=== PATIENT | male | born 1950 | race Caucasian/White ===

== ENCOUNTER 2020-05-23 09:16 | Emergency (ER) | payer MEDICARE, SELFPAY ==
[2020-05-23 09:19] VITALS: BP 191/99; PULSE 91; RESP 18; TEMP 36.8; O2SAT 97; BMI 32.4
[2020-05-23 09:25] VITALS: BP 155/82; PULSE 87; RESP 18; O2SAT 94
--- NOTE | 2020-05-23 09:42 | ED_ITS ---
HPI - Back Pain/Injury General: Chief Complaint: Back Pain/Injury Stated Complaint: LOW BACK PAIN Time Seen by Provider: 05/23/20 09:18 History of Present Illness: HPI Narrative: Patient complains of right-sided back pain that started 2 days ago after moving air conditioner from the attic and he felt pain while carrying that and the pain is not subsided and now the pain is transferred from the right side to the left side it hurts to lift bend twist get out of bed or get out of chair. Denies any hematuria fever chills nausea or vomiting he does have a history of kidney stones MD elicited complaint: back injury Pertinent past history: prior back pain Onset (ago): day(s) Timing: progressively worsening Severity: moderate Similar Symptoms Previously: Yes Quality: aching Location: left flank Radiation: none Exacerbating factors: movement, walking and lifting Relieving factors: immobilization Context: while lifting Associated symptoms: Reports no associated symptoms; Deny abdominal pain, chills, fever(s), nausea or vomiting Work related injury: No Review of Systems Const: Denies: fever(s), chills or body aches Eyes: Denies: change in vision or blurry vision ENMT: Denies: throat pain or nasal congestion Card: Denies: chest pain or dyspnea on exertion Resp: Denies: dyspnea, productive cough or non-productive cough GI: Denies: abdominal pain, nausea or vomiting : Denies: difficulty urinating Musc: Reports: back pain; Denies: extremity pain Skin/Breast: Denies: rash Neuro: Denies: headache(s) Psych: Denies: anxiety or depression Drake/Lymph: Denies: easy bruising PFS ED PFSH: Social History Smoking and tobacco status: never smoked Physical Exam Const: COMMON NORMALS: no acute distress, average body habitus and patient oriented x3 HENMT: COMMON NORMALS: normocephalic HEAD & SCALP: normal to inspection and normocephalic FACE & SINUS: normal facial exam Eye: COMMON NORMALS: conjunctivae normal GENERAL EYE: appearance normal, both eyes and all related structures CONJUNCTIVA: Yes conjunctivae normal Neck/C-Spine: COMMON NORMALS: no JVD Chest: COMMONS NORMALS: normal inspection of the chest Resp: COMMON NORMALS: normal respiratory effort and clear to auscultation bilaterally AUSCULTATION: clear to auscultation bilaterally Cardio: COMMON NORMALS: no JVD, regular rate and regular rhythm RATE: regular rate RHYTHM: regular rhythm GI: COMMON NORMALS: Normal to inspection, nondistended, normoactive bowel sounds present : COMMON NORMALS: Yes no CVA tenderness BLADDER/KIDNEY EXAM: Yes no CVA tenderness Back/Pelvis: COMMON NORMALS: no CVA tenderness; negative for straight leg raise negative bilaterally LUMBAR SPINE/LOWER BACK: Yes straight leg raise positive left Extremity: COMMON NORMALS: normal to inspection and full ROM Neuro: COMMON NORMALS: patient oriented x3 Course Vital Signs: Vital signs: Vital Signs Temperature 98.3 F 05/23/20 09:19 Pulse Rate 87 05/23/20 09:25 Respiratory Rate 18 05/23/20 09:25 Blood Pressure 155/82 05/23/20 09:25 Pulse Oximetry 94 05/23/20 09:25 Coding Level of Care Code ED Ammonium Hydroxide Operator for Morena Lindsay
[2020-05-23 09:51] LABS: Add Urine Microscopic? NO
[2020-05-23] MEDS: ketorolac 60 mg/2 mL INJ IM (09:55)
[2020-05-23] MEDS: HYDROcodone-acetaminophen 5-325 mg Tablet 1 TAB PO (09:55)
[2020-05-23 09:57] VITALS: BP 137/80; PULSE 69; RESP 16; O2SAT 95
[2020-05-23 09:57] LABS: Bilirubin Urine Neg (NEGATIVE); Blood Urine Neg (Negative); Glucose Urine UA Trace (Normal); Ketones Urine Negative (Negative); Leukocyte Esterase Urine Negative (Negative); Nitrate Urine Negative (Negative); Protein Urine Neg (Negative); Urine Appearance Clear (CLEAR); Urine Color Straw (Yellow); Urobilinogen Urine Norm (Negative); pH Urine 6.5 (5-7)
[2020-05-23 10:03] LABS: Basophils # 0.1 10^3/uL (0.0-0.1); Basophils % 0.8 %; Eosinophils % 0.5 %; Hematocrit 44.2 % (42.0-52.0); Hemoglobin 14.5 g/dL (11.7-16.6); Lymphocytes # 1.5 10^3/uL (0.8-4.8); Lymphocytes % 20.6 %; Mean Corpuscular HGB Conc 32.8 g/dL (30.0-36.0); Mean Corpuscular Hemoglobin 29.4 pg (28.0-34.0); Mean Corpuscular Volume 89.7 fL (80-94); Mean Platelet Volume 9.8 fL (7.4-10.4); Monocytes # 0.4 10^3/uL (0.2-0.9); Monocytes % 5.1 %; Neutrophils # 5.4 10^3/uL (1.8-7.7); Neutrophils % 72.3 %; Nucleated Red Blood Cells % 0 %; Platelet Count 246 10^3/cmm (130-400); Red Blood Count 4.93 10^6/uL (4.1-5.3); Red Cell Distribution Width 12.6 % (12.1-15.1); White Blood Count 7.5 10^3/uL (4.0-10.0)
[2020-05-23 10:17] VITALS: BP 143/78; PULSE 63; RESP 16; O2SAT 96
[2020-05-23 10:21] LABS: Anion Gap 16.8 (5-19); Blood Urea Nitrogen 16 mg/dL (8-23); Calcium 9.7 mg/dL (8.5-10.5); Carbon Dioxide 25 mmol/L (22-29); Chloride 98 mmol/L (98-107); Glucose 168 mg/dL (65-115); Osmolality Calculated 282 mOsm/kg (285-295); Potassium 3.8 mmol/L (3.5-5.1); Sodium 136 mmol/L (136-145)
== END 2020-05-23 10:17 | disposition home or self-care (01) ==
LOC: ER 10:19
PROVIDERS: Emergency Provider Nurse Practitioner Family
DX: M54.9 Dorsalgia, unspecified (principal)
CPT/HCPCS: 12345; 36415; 80048; 81003; 85025; 96372; 99281; 99283; J1885

== ENCOUNTER → 2021-09-21 13:53 | Outpatient (BNVA) | payer MEDICARE, OTHER, SELFPAY | PROVIDERS: PCP Family Medicine; Visit Provider Urology | DX: N45.1 Epididymitis (principal) | CPT/HCPCS: 81003 ==

== ENCOUNTER → 2021-10-18 09:53 | Outpatient (BNVA) | payer MEDICARE, OTHER, SELFPAY | PROVIDERS: PCP Family Medicine; Visit Provider Urology | DX: N50.811 Right testicular pain (principal) | CPT/HCPCS: 81003 ==

== ENCOUNTER → 2021-11-01 09:19 | Outpatient (BNVA) | payer MEDICARE, OTHER, SELFPAY | PROVIDERS: PCP Family Medicine; Visit Provider Urology | DX: N50.811 Right testicular pain (principal); Z20.822 Contact with and (suspected) exposure to COVID-19 | CPT/HCPCS: 87635 ==

== ENCOUNTER 2021-11-04 11:00 | Day surgery (SDC) | payer MEDICARE, OTHER, SELFPAY ==
[2021-11-03 14:59] VITALS: BMI 27.3
[2021-11-04 10:54] VITALS: BP 113/82; PULSE 81; RESP 18; TEMP 36.6; O2SAT 98
--- NOTE | 2021-11-04 11:08 | ECG_ITS ---
[facility] Test Date: 2021-11-04 Pat Name: Vladimir Melgar Department: Room: Gender: Male Fundraising Director: : 1950 Requested By: Kyra Zapata Order Number: [id number] Markell MD: Fili Peterson M.D. Measurements Intervals [place] Rate: 78 P: [place]: QRS: -22 QRSD: 86 T: 6 QT: 356 QTc: 408 Interpretive Statements ATRIAL FIBRILLATION WITH ABERRANT CONDUCTION OR VENTRICULAR PREMATURE COMPLEXES LOW QRS VOLTAGE IN PRECORDIAL LEADS [QRS DEFLECTION < 1.0 mV IN CHEST LEADS] POSSIBLE ANTERIOR MYOCARDIAL INFARCTION , OF INDETERMINATE AGE [30 ms Q WAVE IN V3/V4, OR R < 0.2 mV IN V4] No previous ECG available for comparison Electronically Signed On 11-06-2021 7:49:36 FLEET ASSISTANT by Fili Peterson M.D. [email or web address]/store/[id number]
--- NOTE | 2021-11-04 12:58 | PM.MISC ---
Miscellaneous Note Purpose of Documentation: Surgical cancellation Note: On preoperative evaluation with anesthesia the patient was found to have new onset atrial fibrillation. He is scheduled for right orchiectomy for chronic intermittent severe testicular pain. Despite the importance of the scheduled procedure it was felt that proceeding with work-up for atrial fibrillation prior to the procedure would make sense. For that reason the surgery has been canceled. We will contact his family physician Dr. Aguilar to see what he would prefer regarding work-up and treatment prior to rescheduling the surgery Reviewed in detail with the patient and with anesthesia.
--- NOTE | 2021-11-04 13:08 | SUR.PREOP ---
11:00 UPON INITIAL EXAMINATION, IRREGULAR HEART BEAT WAS NOTED. 12 LEAD EKG WAS PERFORMED AND DOCTOR IGGY WAS INFORMED.PATIENT EVALUATED BY DOCTOR PARKINSON, AND DOCTOR NICK WAS INFORMED.AFTER CONSULTATION WITH PATIENT,IT WAS DECIDED TO CANCEL SURGERY AND HAVE PATIENT FOLLOW UP WITH PCP AT [facility]. CLINIC WAS CALLED AND APPOINTMENT WAS MADE AND EKG WAS FAXED TO PATIENTS PCP.
== END 2021-11-04 13:10 | disposition home or self-care (01) ==
PROVIDERS: PCP Family Medicine; Visit Provider Urology
DX: N50.811 Right testicular pain (principal); N50.819 Testicular pain, unspecified; I48.91 Unspecified atrial fibrillation; Z53.09 Procedure and treatment not carried out because of other contraindication
CPT/HCPCS: 93005; J1100; J2405; J2704; J3010

== ENCOUNTER 2021-11-13 20:57 | Emergency (ER) | payer MEDICARE, OTHER, SELFPAY ==
--- NOTE | 2021-11-13 03:22 | XRR_ITS ---
PROCEDURE INFORMATION: Exam: XR Chest Exam date and time: 11/13/2021 3:22 AM Age: 71 years old Clinical indication: Patient HX: C/O heart palpitations. Afib on monitor. TECHNIQUE: Imaging protocol: XR of the chest. Views: 1 view. COMPARISON: No relevant prior studies available. FINDINGS: Lungs: Unremarkable. No consolidation. Pleural spaces: Unremarkable. No pleural effusion. No pneumothorax. Heart/Mediastinum: Unremarkable. No cardiomegaly. Bones/joints: Unremarkable. XR/XR chest 1V portable [id number] IMPRESSION: No acute findings.
--- NOTE | 2021-11-13 21:04 | ECG_ITS ---
[facility] Test Date: 2021-11-13 Pat Name: Vladimir Melgar Department: Room: Gender: Male Recreation Therapy Teacher: : 1950 Requested By: Artemio Veloz Order Number: [id number] Reading MD: SELVIN HOLLEY Measurements Intervals [place] Rate: 93 P: [place]: QRS: -23 QRSD: 88 T: 61 QT: 339 QTc: 422 Interpretive Statements ATRIAL FIBRILLATION WITH ABERRANT CONDUCTION OR VENTRICULAR PREMATURE COMPLEXES LOW QRS VOLTAGE IN PRECORDIAL LEADS [QRS DEFLECTION < 1.0 mV IN CHEST LEADS] POSSIBLE ANTERIOR MYOCARDIAL INFARCTION , PROBABLY OLD [30 ms Q WAVE IN V3/V4, OR R < 0.2 mV IN V4] ABNORMAL RHYTHM ECG Compared to ECG 11/04/2021 11:16:12 No significant changes Electronically Signed On 11-14-2021 19:58:44 STEEL TURNER by SELVIN HOLLEY [email or web address]/[id number] f
[2021-11-13 21:07] VITALS: BP 143/81; PULSE 76; RESP 16; TEMP 36.5; O2SAT 99
--- NOTE | 2021-11-13 21:16 | ECG_ITS ---
[facility] Test Date: 2021-11-13 Pat Name: Vladimir Melgar Department: Room: Gender: Male Vocational Education Teacher: : 1950 Requested By: Maurilio Shell Order Number: [id number] Reading MD: SELVIN HOLLEY Measurements Intervals [place] Rate: 93 P: [place]: QRS: -13 QRSD: 88 T: 28 QT: 342 QTc: 426 Interpretive Statements ATRIAL FIBRILLATION WITH ABERRANT CONDUCTION OR VENTRICULAR PREMATURE COMPLEXES NONSPECIFIC T-WAVE ABNORMALITY ABNORMAL RHYTHM ECG Compared to ECG 11/04/2021 11:16:12 T-wave abnormality now present Myocardial infarct finding no longer present Electronically Signed On 11-14-2021 19:58:42 STRATEGIC MANAGER by SELVIN HOLLEY [id number]
[2021-11-13 21:35] VITALS: BP 119/85; PULSE 94; RESP 16; TEMP 36.7; O2SAT 94
[2021-11-13 21:37] LABS: Basophils # 0.1 10^3/uL (0.0-0.1); Basophils % 0.7 %; Eosinophils # 0.1 10^3/uL (0.0-0.8); Eosinophils % 1.2 %; Hematocrit 42.5 % (42.0-52.0); Hemoglobin 14.3 g/dL (11.7-16.6); Lymphocytes # 2.6 10^3/uL (0.8-4.8); Lymphocytes % 34.5 %; Mean Corpuscular HGB Conc 33.6 g/dL (30.0-36.0); Mean Corpuscular Hemoglobin 29.8 pg (28.0-34.0); Mean Corpuscular Volume 88.5 fl (80-94); Mean Platelet Volume 9.7 fL (7.4-10.4); Monocytes # 0.7 10^3/uL (0.2-0.9); Monocytes % 9.4 %; Neutrophils # 4.01 10^3/uL (1.8-7.7); Neutrophils % 53.9 %; Nucleated Red Blood Cells % 0 %; Platelet Count 224 10^3/cmm (130-400); Red Cell Distribution Width 13.1 % (12.1-15.1); White Blood Count 7.4 10^3/uL (4.0-10.0)
--- NOTE | 2021-11-13 21:54 | W.ED.ARRPALP ---
HPI - Arrhythmia/Palpitations General: Chief Complaint: Arrhythmia/Palpitations Stated Complaint: In A-Fib Time Seen by Provider: 11/13/21 21:14 History of Present Illness: HPI narrative: 71-year-old male with a recent diagnosis of atrial fibrillation. He was placed on anticoagulation therapy. He is experienced palpitations since his diagnosis. He denies any chest pain. He has had a mild headache on and off with the neck ache. His describes periods of diaphoresis. He has appointments for stress testing and echocardiography in November. He denies significant shortness of breath. He has no known cardiac history otherwise MD complaint: skipped beats , palpitations, irregular heart beat and atrial fibrillation Onset (ago): day(s) Duration: intermittent Severity: moderate Context: occurred during rest Arrhythmia history: atrial fibrillation and on anti-coagulants Associated symptoms: Reports diaphoresis and nausea; Deny cough, paresthesias, short of breath or vomiting Review of Systems Const: Reports: diaphoresis; Denies: fever(s) or chills Eyes: Denies: change in vision Card: Denies: chest pain or palpitations Resp: Denies: dyspnea, productive cough or non-productive cough GI: Reports: nausea; Denies: vomiting PFS ED PFSH: Medical History (Updated 11/13/21 @ 23:21 by Maurilio Chris DO) Right epididymitis Right testicular pain Surgical History No pertinent past surgical history Family History Father , AT 92 Natural Mother , UNSURE OF AGE No problems noted. Social History Alcohol intake: never Marital status: Current occupational status: retired History of recent travel: No Physical Exam Const: COMMON NORMALS: no acute distress, patient oriented x3 and alert HENMT: COMMON NORMALS: normocephalic HEAD & SCALP: normocephalic Eye: COMMON NORMALS: Equal, round and reactive pupils present and EOMs intact bilaterally PUPIL: Yes Equal, round and reactive pupils present Chest: COMMONS NORMALS: normal inspection of the chest Resp: COMMON NORMALS: normal respiratory effort, No use of accessory muscles and clear to auscultation bilaterally AUSCULTATION: clear to auscultation bilaterally Cardio: RATE: not tachycardic RHYTHM: abnormal rhythm irregularly irregular GI: COMMON NORMALS: Normal to inspection, nondistended, normoactive bowel sounds present, Soft to palpation and non-tender PALPATION: Yes Soft to palpation Extremity: COMMON NORMALS: no pedal edema Neuro: COMMON NORMALS: patient oriented x3 SENSORIUM/ORIENTATION: Yes alert Course Vital Signs: Vital signs: Vital Signs Temperature 98.1 F 11/13/21 21:35 Pulse Rate 94 11/13/21 21:35 Respiratory Rate 16 11/13/21 21:35 Blood Pressure 119/85 11/13/21 21:35 Pulse Oximetry 94 11/13/21 21:35 MDM - Arrhythmia/Palpitations MDM Narrative: Medical decision making narrative: Laboratory is essentially normal. He is given metoprolol with some control of his rate. He is already on Eliquis. His troponin did not elevate at 2 hours. His EKG shows no acute ST changes despite his atrial fibrillation and frequent PVCs. We will put in a case management referral for [facility] Lab Data: Labs: Lab Results 11/13/21 11/13/21 11/13/21 20:27 20:27 20:27 WBC 7.4 10^3/uL 10^3/ uL (4.0-10.0) RBC 4.80 10^6/uL 10^6 /uL (4.1-5.3) Hgb 14.3 g/dL g/dL (11.7-16.6) Hct 42.5 % % (42.0-52.0) MCV 88.5 fl fl (80-94) MCH 29.8 pg pg (28.0-34.0) MCHC 33.6 g/dL g/dL (30.0-36.0) RDW 13.1 % % (12.1-15.1) Plt Count 224 10^3/cmm 10^3 /cmm (130-400) MPV 9.7 fL fL (7.4-10.4) Neut % (Auto) 53.9 % % Lymph % (Auto) 34.5 % % [place] % (Auto) 9.4 % % Eos % (Auto) 1.2 % % Baso % (Auto) 0.7 % % Neut # (Auto) 4.01 10^3/uL 10^3 /uL (1.8-7.7) Lymph # (Auto) 2.6 10^3/uL 10^3/ uL (0.8-4.8) [place] # (Auto) 0.7 10^3/uL 10^3/ uL (0.2-0.9) Eos # (Auto) 0.1 10^3/uL 10^3/ uL (0.0-0.8) Baso # (Auto) 0.1 10^3/uL 10^3/ uL (0.0-0.1) Nucleated RBC % (a uto) 0 % % Nucleated RBCs # 0.0 /100WBC /100W BC Sodium 138 mmol/L mmol/L (136-145) Potassium 3.7 mmol/L mmol/L (3.5-5.1) Chloride 103 mmol/L mmol/L (98-107) Carbon Dioxide 20 mmol/L L mmol/ L (22-29) Anion Gap 18.7 (5-19) BUN 14 mg/dL mg/dL (8-23) Creatinine 0.7 mg/dL mg/dL (0.7-1.2) GFR Calculation Not Reportable Glucose 124 mg/dL H mg/dL (65-115) Calculated Osmolal ity 288 mOsm/kg mOsm/ kg (285-295) Calcium 8.4 mg/dL L mg/dL (8.5-10.5) Magnesium 1.9 mg/dL mg/dL (1.7-2.3) Troponin T Baselin e 6 ng/L ng/L (0-15) Troponin T 120 Min [place] Troponin T NT-Pro-B Natriuret Pep 460 pg/mL H pg/mL (0-125) 11/13/21 22:30 WBC RBC Hgb Hct MCV MCH MCHC RDW Plt Count MPV Neut % (Auto) Lymph % (Auto) [place] % (Auto) Eos % (Auto) Baso % (Auto) Neut # (Auto) Lymph # (Auto) [place] # (Auto) Eos # (Auto) Baso # (Auto) Nucleated RBC % (a uto) Nucleated RBCs # Sodium Potassium Chloride Carbon Dioxide Anion Gap BUN Creatinine GFR Calculation Glucose Calculated Osmolal ity Calcium Magnesium Troponin T Baselin e Troponin T [address] [place] 6.00 ng/L ng/L (0-15) Delta Troponin T 0 ABS# ABS# (0-10) NT-Pro-B Natriuret Pep Discharge Plan Discharge Patient Disposition: Home Clinical Impression: Atrial fibrillation Qualifiers: Atrial fibrillation type: unspecified Qualified Code(s): I48.91 - Unspecified atrial fibrillation Condition: Stable Prescriptions: No Action ibuprofen 200 mg capsule 200 mg PO Q6H PRN (Reason: Pain) RF: 0 Discharge Orders: Discharge ED (Routine); Ordered 11/13/21 Ordered By: Maurilio Chris Referrals: Greg Aguilar MD [Primary Care Provider] - 1-3 days Patient Instructions: A-fib (Atrial Fibrillation) (ED) Activity Restrictions/Additional Instructions: Take the medication as directed in addition to your Eliquis. A case management referral has been made for you an appointment with a long haul truck driver, and hopefully to expedite your outpatient testing. Return for chest discomfort, syncope or passing out, shortness of breath, any other concerning symptoms. Check your blood pressure twice daily on the medication as well as your heart rate and record these things for your doctors. Coding Level of Care Code ED Formal Waiter/Waitress for Morena Fwd Exam Comprehensive
[2021-11-13] MEDS: metoprolol tartrate 1 mg/1 mL SDV 5 mL 2.5 MG IVP (22:01)
[2021-11-13 22:06] LABS: Troponin(5th) Baseline 6 ng/L (0-15)
[2021-11-13 22:13] LABS: Anion Gap 18.7 (5-19); Blood Urea Nitrogen 14 mg/dL (8-23); Calcium 8.4 mg/dL (8.5-10.5); Carbon Dioxide 20 mmol/L (22-29); Chloride 103 mmol/L (98-107); Glucose 124 mg/dL (65-115); Magnesium 1.9 mg/dL (1.7-2.3); NT Pro B Type Natriuretic Pept 460 pg/mL (0-125); Osmolality Calculated 288 mOsm/kg (285-295); Potassium 3.7 mmol/L (3.5-5.1); Sodium 138 mmol/L (136-145)
[2021-11-13 22:52] LABS: Troponin 5 2HR Delta 0 ABS# (0-10)
--- NOTE | 2021-11-13 23:16 | ECG_ITS ---
[facility] Test Date: 2021-11-13 Pat Name: Vladimir Melgar Department: Room: Gender: Male Draw Fire Operator: : 1950 Requested By: Maurilio Shell Order Number: [id number] Markell MD: SELVIN HOLLEY Measurements Intervals [place] Rate: 79 P: [place]: QRS: -17 QRSD: 89 T: 31 QT: 357 QTc: 409 Interpretive Statements ATRIAL FIBRILLATION WITH ABERRANT CONDUCTION OR VENTRICULAR PREMATURE COMPLEXES LOW QRS VOLTAGE IN PRECORDIAL LEADS [QRS DEFLECTION < 1.0 mV IN CHEST LEADS] POSSIBLE ANTERIOR MYOCARDIAL INFARCTION , OF INDETERMINATE AGE [30 ms Q WAVE IN V3/V4, OR R < 0.2 mV IN V4] Compared to ECG 11/13/2021 21:24:54 Low QRS voltage now present Myocardial infarct finding now present T-wave abnormality no longer present Electronically Signed On 11-14-2021 19:59:42 STEEL TURNER by SELVIN HOLLEY [email or web address].[email or web address]/[id number]
--- NOTE | 2021-11-16 10:59 | PC.SOCIAL ---
Referral from Dr Chris for Cardiology appt and bennie Alvarado at [facility] this is already scheduled. CAlled and spoke with and she is aware of the appointment for 11/25/2021 at 9:45am. No further questions.
--- NOTE | 2021-11-25 15:09 | DCPLANNER ---
Patient had a follow up appointment scheduled with heart care - appointment was rescheduled.
== END 2021-11-14 | disposition home or self-care (01) ==
PROVIDERS: Emergency Medicine; Emergency Provider Emergency Medicine; PCP Family Medicine
DX: I48.91 Unspecified atrial fibrillation (principal)
CPT/HCPCS: 36415; 71045; 80048; 83735; 83880; 84484; 85025; 93005; 96374; 99284; 99291; J3490

== ENCOUNTER 2021-12-01 08:40 | Outpatient (CLI) | payer MEDICARE, OTHER, SELFPAY ==
--- NOTE | 2021-12-01 10:03 | ECG_ITS ---
[facility] Test Date: 2021-12-01 Pat Name: Vladimir Melgar Department: Room: Gender: Male Cell Phone Repair Technician: Renée Sampson : 1950 Requested By: Greg Robles Order Number: [id number] Markell MD: Jessica Patricia M.D. Interpretive Statements NAME OF STUDY: LEXISCAN SESTAMIBI STRESS TEST INDICATION: Atrial fibrillation PROCEDURE: At the baseline, the blood pressure was 110/89 mmHg with a heart rate of 94 bpm. The electrocardiogram showed atrial fibrillation, right axis deviation. Isolated PVCs and artifact. Nonspecific ST-T wave changes The Lexiscan was infused over a period of 20 seconds. A total of 0.4 milligrams of Lexiscan was infused. The stress phase was continued for a total of 5 minutes. Heart rate at the end of the stress phase was 115 bpm with a blood pressure of 137/77 mmHg. The EKG at the peak infusion revealed no significant ST-T wave changes. The study was terminated to protocol completion. Sestamibi was injected 20 seconds after the Lexiscan infusion. Blood pressure at the end of the recovery phase was 128/67 mmHg with a heart rate of 106 beats per minute. CONCLUSION: 1. No significant EKG changes with the LexiScan infusion. 2. No LexiScan induced chest pain or cardiac arrhythmia. 3. Normal blood pressure and heart rate response. 4. Sestamibi/sestamibi perfusion scan pending; see separate report. Electronically Signed On 12-06-2021 18:21:12 OIL REFINER by Jessica Patricia M.D. [id number]
--- NOTE | 2021-12-01 10:03 | NMCV_ITS ---
NM nael perf SPECT r/s* [id number] Vladimir Melgar Age: 71 Gender: M : 1950 Exam Date: 12/01/2021 10:50 Ordering Phys: Greg Aguilar MD Technologist: MELANIE Alarcon Exam Location: [facility] Indications: ABNORMAL EKG STRESS TEST Please see separate stress test report in [facility] for full findings IMAGE PROTOCOL Rest/Stress 1 Lexiscan Day Radiopharmaceutical Dose (mCi) Administration Site Administered by Rest: Tc-99m 11.0 IV MELANIE Rios Sestamibi Stress:Tc-99m 32.0 IV MELANIE Alarcon Sestamibi Rest: 01-Dec-2021 60 Discovery 630 Stress: 01-Dec-2021 30 Discovery 630 0.4mg Lexiscan. Supine position only as patient was unable to lay prone. SPECT RESULTS Technical Quality: Excellent Raw Data Analysis: Normal Image Corrections: No attenuation or motion correction applied Summed Stress Score: 2 Summed Rest Score: 2 Summed Difference Score: 0 PERFUSION FINDINGS Small size perfusion abnormality of mild severity of apical lateral ewing with subtle reversibility in stress images. FUNCTIONAL RESULTS (calculated via Gated SPECT) Stress Image LV EF (%): 65 Stress EDV (mL):72 TID: 1.05 Stress ESV (mL):25 FUNCTIONAL FINDINGS: The left ventricle is normal in size. Transient Ischemia Dilatation of 1.1. There is normal left ventricular systolic function. The left ventricular ejection fraction is normal with a value of 65%. There is normal left ventricular wall thickening with no regional wall motion abnormality. Normal end-diastolic and end-systolic volumes. IMPRESSIONS 1. Small sized perfusion abnormality of mild severity of apical lateral wall with subtle reversibility in stress images. 2. This may represent old myocardial infarction in left anterior descending artery territory with minimal ken-infarct ischemia or attenuation artifact. 3. Overall left ventricular systolic function is normal without regional wall motion abnormalities, LVEF=65%. 4. No prior similar studies to compare. Jessica Patricia MD (Electronically Signed) Final Date: 06 December 2021 18:17 S
[2021-12-01 10:04] VITALS: BMI 27.3
[2021-12-01] MEDS: regadenoson 0.4 Mg/5 ml Syringe IVP (11:24)
[2021-12-01 11:30] VITALS: BP 126/67; PULSE 106
== END 2021-12-01 08:41 | disposition home or self-care (01) ==
LOC: CDL 08:42
PROVIDERS: PCP Family Medicine; Visit Provider Family Medicine
DX: I48.91 Unspecified atrial fibrillation (principal); R06.02 Shortness of breath
CPT/HCPCS: 78452; 93017; A9500; J2785

== ENCOUNTER → 2021-12-14 09:37 | Outpatient (BNVA) | payer MEDICARE, OTHER, SELFPAY | PROVIDERS: PCP Family Medicine; Visit Provider Urology | DX: N50.811 Right testicular pain (principal) | CPT/HCPCS: 81003 ==

== ENCOUNTER 2021-12-20 07:15 | Outpatient (CLI) | payer MEDICARE, OTHER, SELFPAY ==
--- NOTE | 2021-12-20 07:32 | USCV_ITS ---
Vladimir Melgar Age: 71 Gender: M : 1950 Exam Date: 12/20/2021 07:42 Ordering Phys: Greg Aguilar MD Technologist: LEONEL [place] [facility] [place]: Atrial fibrillation BP: 98 / 62 HR: 79 Rhythm: Atrial fibrillation Technical Quality: Adequate MEASUREMENTS (Male / Female) Normal Values 2D ECHO LV Diastolic Diameter PLAX 5.0 cm 4.2 - 5.9 / 3.9 - 5.3 cm LV Systolic Diameter PLAX 4.1 cm IVS Diastolic Thickness 0.7 cm 0.6 - 1.0 / 0.6 - 0.9 cm IVS Systolic Thickness 1.1 cm LVPW Diastolic Thickness 1.2 cm 0.6 - 1.0 / 0.6 - 0.9 cm LVPW Systolic Thickness 1.3 cm RV Chamber Size 3.2 cm LVOT Diameter 2.0 cm LV Ejection Fraction 2D Teich 47.3 % LV Ejection Fraction MOD 2C 58.2 % LV Ejection Fraction 2C AL 58.5 % LA Diameter 3.9 cm LA Width 3.6 cm LA Height 4.2 cm RA Width 4.1 cm RA Height 4.7 cm Aorta at Sinotubular Diameter 2.6 cm M-MODE Aortic Annulus Diameter 2.6 cm LA Ao Ratio MM 1.5 MV E Point Septal Separation 0.5 cm DOPPLER AV Peak Velocity 98.0 cm/s LVOT Peak Velocity 74.0 cm/s AV Area Cont Eq vti 2.8 cm squared AV Area Cont Eq pk 2.4 cm squared MV Area PHT 4.8 cm squared MV E' Velocity 43.5 cm/s Mitral E to MV E' Ratio 9.4 Mitral E to LV E' Lateral Ratio 8.7 Mitral E to LV E' Septal Ratio 10.2 TR Peak Velocity 202.6 cm/s TR Peak Gradient 16.4 mmHg TR Mean Velocity 181.0 cm/s TR Mean Gradient 14.1 mmHg TR Velocity Time Integral 62.6 cm TV Peak E Velocity 80.0 cm/s Right Atrial Pressure 3.0 mmHg Pulmonary Artery Systolic Pressu 19.4 mmHg PV Peak Velocity 110.0 cm/s RV Acceleration Time 0.2 s RV Ejection Time 0.3 s RV AcT/ET 0.6 FINDINGS Left Ventricle Normal left ventricular size, systolic function and wall thickness, with no regional wall motion abnormalities. Left ventricular ejection fraction is estimated at 60 %. Rhythm precludes evaluation of diastolic function. Right Ventricle Normal right ventricular size and systolic function. Right ventricular systolic pressure 27 mmHg. Right Atrium Mildly increased right atrial size. Left Atrium Mildly increased left atrial size. Mitral Valve Structurally normal mitral valve. No mitral valve stenosis. Mild mitral valve regurgitation. Aortic Valve Structurally normal trileaflet aortic valve. No aortic valve stenosis. Trace aortic valve regurgitation. Tricuspid Valve Structurally normal tricuspid valve. No tricuspid valve stenosis. Ewit-tw-zofbsvrw tricuspid valve regurgitation. Pulmonic Valve Structurally normal pulmonic valve. Trace pulmonary valve regurgitation. Pericardium No pericardial effusion. Aorta Normal size aortic root and proximal ascending aorta. CONCLUSIONS 1. Normal left ventricular size, systolic function and wall thickness, with no regional wall motion abnormalities. Left ventricular ejection fraction is estimated at 60 %. 2. Mild biatrial enlargement. 3. Jhgo-ti-ocqgqltk tricuspid valve regurgitation. 4. Mild mitral valve regurgitation. 5. No prior similar studies to compare. Jessica Patricia MD (Electronically Signed) Final Date: 20 December 2021 22:51 S
== END 2021-12-20 07:16 | disposition home or self-care (01) ==
LOC: RAD 07:25
PROVIDERS: PCP Family Medicine; Visit Provider Family Medicine
DX: I48.91 Unspecified atrial fibrillation (principal); I08.1 Rheumatic disorders of both mitral and tricuspid valves
CPT/HCPCS: 87635; 93306

== ENCOUNTER 2021-12-27 06:24 | Day surgery (SDC) | payer MEDICARE, OTHER, SELFPAY ==
[2021-12-24 12:39] VITALS: BMI 27.3
[2021-12-27] VITALS (10 sets, daily range): BP systolic 107–126; BP diastolic 62–82; PULSE 70–90; RESP 18–20; TEMP 36.1–36.7; O2SAT 95–100
[2021-12-27] MEDS: sodium chloride 0.9% 1,000 ML 30 ML IV (06:44)
--- NOTE | 2021-12-27 07:06 | ANES.PREANE2 ---
Pre-Anesthetic Assessment Height/Weight: Height 1.73 m Weight 81.647 kg Temp Pulse Resp BP Pulse Ox 97.4 F L 70 18 113/78 97 12/27/21 06:34 12/27/21 06:34 12/27/21 06:34 12/27/21 06:34 12/27/21 06:34 Preop Diagnosis: Chronic right testicular/epididymal pain Operation Date: 12/27/21 08:10 Proposed Procedures p Right scrotal orchiectomy 01242/n50.811/n50.819(Right) - Samson Edwards MD Familial anesthetic complications: none Was Beta Savage taken within 24 hours: Yes Was Clonidine taken within 24 hours: N/A Last intake: Intake Last Liquid Date 12/26/21 Last Liquid Time 18:30 Last Solid Date 12/26/21 Last Solid Time 18:30 Social No alcohol and No tobacco Exam alert, oriented x 3, clear to auscultation bilaterally and regular rate & rhythm (iregular) Airway Cervical ROM: within normal limits Mallampati: Class II Dentition: full History/ROS No significant complaints Pulmonary None reported CV/HEM Atrial Fibrillation and Coronary Artery Disease 12/01/20 Lexiscan?sestamibi myocardial perfusion imaging IMPRESSIONS ?1. Small sized perfusion abnormality of mild severity of apical lateral wall ?with subtle reversibility in stress images. ?2. This may represent old myocardial infarction in left anterior descending ?artery territory with minimal ken-infarct ischemia or attenuation artifact. ?3. Overall left ventricular systolic function is normal without regional wall ?motion abnormalities, LVEF=65%. ?4. No prior similar studies to compare. CONCLUSION: 1. No significant EKG changes with the LexiScan infusion. Anesthetic Plan ASA status: 3 Anesthesia: General Medications/Allergies Home Medications Medication Instructions Recorded Confirmed Last Taken Type apixaban 5 mg tablet (Eliquis) 5 mg PO BID #180 tab 12/08/21 12/27/21 12/24/21 Rx fluoxetine 10 mg capsule 10 mg PO DAILY 12/08/21 12/27/21 12/27/21 History metoprolol tartrate 25 mg tablet 25 mg PO BID #60 tab 12/08/21 12/27/21 12/27/21 Rx pravastatin 10 mg tablet 10 mg PO BEDTIME #30 tab 12/08/21 12/27/21 12/27/21 Rx Allergies Allergy/AdvReac Type Severity Reaction Status Date / Time No Known Allergies Allergy Verified 12/27/21 06:33 Current Medications Generic Name Dose Route Start Last Admin Trade Name Pino PRN Reason Stop Dose Admin Sodium Chloride 1,000 mls @ 30 mls/hr 12/27/21 06:30 12/27/21 06:44 Sodium Chloride 0.9% IV 12/28/21 06:29 30 mls/hr .Q24H JUNE Administration PFSH Anesthesia Medical History Adult BMI 30.0-30.9 kg/sq m Anxiety Right epididymitis Right testicular pain Surgical History No pertinent past surgical history Family History Father , AT 92 Natural Mother , UNSURE OF AGE No problems noted. Social History Alcohol intake: never Marital status: Current occupational status: retired History of recent travel: No Data Anesthesia Cardiac Studies: Echocardiogram 12/20/21 Sestamibi Stress Test (Cardiology) 12/01/21 Cardiac Event Monitor 11/15/21
--- NOTE | 2021-12-27 07:47 | W.PM.OPSUD ---
Surgery/Procedure H&P Update DATE OF PROCEDURE: December 27, 2021 DATE H&P PERFORMED: 12/14/21 CHANGES TO PREVIOUS DOCUMENTATION: None confirmed right side with patient identification and subsequent marking. PREOP DIAGNOSIS: Chronic right testicular/epididymal pain PRIMARY INDICATION FOR PROCEDURE: Chronic right testicular/epididymal pain PLANNED PROCEDURE: Operation Date: 12/27/21 08:10 Proposed Procedures p Right scrotal orchiectomy 91312/n50.811/n50.819(Right) - Samson Edwards MD
--- NOTE | 2021-12-27 07:58 | PM.OP ---
Operative Report Date of procedure: December 27, 2021 Pre-op diagnosis: Preop Diagnosis Chronic right testicular/epididymal pain Post-op diagnosis: Chronic right testicular/epididymal pain Procedure done: Right orchiectomy, scrotal approach Specimens removed/disposition: Right testicle, partial cord Pathology: Right testicle, partial cord Surgeon: Grace Estimated blood loss: Minimal Urine output: Not measured Complications: None Findings: Grossly normal anatomic structures. Brief History: Mr. Melgar is a very pleasant 71-year-old white male who suffered for an extended period of time with intermittent severe right testalgia/epididymalgia. Multiple palliative options were taken to try to relieve his symptoms but unsuccessfully. Ultimately he chose right orchiectomy. His surgery was delayed due to diagnosis of new onset atrial fibrillation. He has held his Eliquis for 3 days Procedure: After routine preoperative evaluation examination and obtaining of informed consent he was taken to the operating suite on 12/27/2021 where general anesthesia was administered without difficulty after appropriate timeout was performed, SCDs confirmed to be functioning, preoperative antibiotics administered, beta-isabel protocol confirmed. Prepped and draped in usual sterile fashion in supine position paying careful attention to avoiding pressure points. Appropriate laterality was confirmed prior to incision via markings and documentation Midline median raphae incision was made in the scrotum over the right hemiscrotal contents. Incision was taken down to the tunica vaginalis which was freed from surrounding adhesions. The cord structures were easily identified dissected proximally doubly clamped and divided into 2 packets. Meticulous hemostasis was obtained via electrocautery. Wound was irrigated. Prior to closure hemostasis was again confirmed. Wound was closed in layers utilizing some interrupted deep Vicryl sutures to close the deep space. The dartos layer was closed with a running 3-0 Vicryl suture and then the skin edges were approximated with 4-0 Vicryl subcuticular closure followed by Dermabond to the skin. Fluffed dressings were applied under scrotal support for light compression. He tolerated procedure well without complications. Awakened in the operating room and transferred to PACU in stable condition. PLANS: 1. Anticipate discharge from 2. Reviewed instructions again with his 3. Follow-up in roughly 6 weeks for postop check. 4. Can restart his Eliquis on 12/30/2021 .
--- NOTE | 2021-12-27 13:47 | ANE.PACU2 ---
Inpatient post-anesthesia follow up: Airway intact: No Vital signs: Temperature 97.0 F Pulse Rate 83 Respiratory Rate 18 Blood Pressure 126/68 Pulse Oximetry 97 Oxygen Delivery Me thod Room Air Oxygen Flow Rate 6 Fraction of Inspir ed Oxygen Hydration adequate: Yes Nausea and vomiting: No Pain level: 2 Mental status: Baseline
== END 2021-12-27 10:26 | disposition home or self-care (01) ==
PROVIDERS: PCP Family Medicine; Visit Provider Urology
PROC: (CPT 54520; principal; 2021-12-27 08:10)
DX: N50.811 Right testicular pain (principal); N45.1 Epididymitis; I48.91 Unspecified atrial fibrillation; I25.10 Atherosclerotic heart disease of native coronary artery without angina pectoris; F41.9 Anxiety disorder, unspecified; Z79.01 Long term (current) use of anticoagulants
CPT/HCPCS: 54520; 88304; J0690; J1100; J2370; J2405; J2704; J3010; J3490; J7030

== ENCOUNTER 2021-12-29 08:14 | Emergency (ER) | payer MEDICARE, SELFPAY ==
--- NOTE | 2021-12-29 08:17 | ECG_ITS ---
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 Measurements Intervals [place] Rate: 68 P: MS: QRS: -14 QRSD: 90 T: 12 QT: 375 QTc: 399 Interpretive Statements ATRIAL FIBRILLATION WITH ABERRANT CONDUCTION OR VENTRICULAR PREMATURE COMPLEXES LOW QRS VOLTAGE IN PRECORDIAL LEADS [QRS DEFLECTION < 1.0 mV IN CHEST LEADS] POSSIBLE ANTERIOR MYOCARDIAL INFARCTION , PROBABLY OLD [30 ms Q WAVE IN V3/V4, OR R < 0.2 mV IN V4] ABNORMAL RHYTHM ECG Compared to ECG 12/29/2021 08:24:06 No significant changes Electronically Signed On 12-29-2021 18:30:07 LIQUOR CLERK by Fili Peterson M.D. [id number]
--- NOTE | 2021-12-29 08:17 | XR_ITS ---
WS: [id number] XR chest 1V portable [id number] REASON FOR EXAM: chest pain FINDINGS: The chest is unchanged compared to 11/13/2021. Moderate tortuosity thoracic aorta. Heart size at the upper limits of normal. Calcified granulomatous disease in both hemithoraces. No acute pulmonary parenchymal or pleural abnormality. Degenerative spondylosis in the mid and lower thoracic spine. XR/XR chest 1V portable [id number] IMPRESSION: No acute chest abnormality.
[2021-12-29 08:25] VITALS: BP 138/84; PULSE 68; RESP 18; TEMP 36.7; O2SAT 98; BMI 27.3
[2021-12-29 08:29] VITALS: BP 119/62; PULSE 75; RESP 19; O2SAT 99
--- NOTE | 2021-12-29 08:31 | W.ED.CHESTPA ---
HPI - Chest Pain General: Chief Complaint: Chest Pain Stated Complaint: CHEST PAIN Time Seen by Provider: 12/29/21 08:30 History of Present Illness: Mr. Melgar is a 71-year-old gentleman with significant past medical history of atrial fibrillation on anticoagulation who presents emergency department due to chest discomfort. He reports stopping his Eliquis, as directed by physician, in preparation for surgery on Monday (12/24). He had surgery on Monday (12/27) and reportedly tolerated procedure well. Starting on that Monday he has described intermittent irregular feeling of his heart rate as well as pressure in the middle of his chest. There is no associated radiation or other typical cardiac features with exception of mild lightheadedness with position changes. Overall the course of symptoms has remained largely unchanged though perhaps a little worse over the night. Intensity is moderate. No other specific changes to health, exacerbating, relieving factors that the patient identifies. Pertinent past history: other Onset (ago): day(s) Timing of current episode: constant and increasing Prior episodes: No Pain location: substernal, left chest and right chest Severity: moderate Quality: heaviness Relieving factors: nothing Exacerbating factors: nothing Context: recent surgery and other Treatment prior to arrival: none Review of Systems General: Reports: 10 or more systems reviewed and unremarkable except in HPI and below PFSH ED PFSH: Medical History Adult BMI 30.0-30.9 kg/sq m Anxiety Right epididymitis Right testicular pain Surgical History History of orchiectomy Family History Father , AT 92 Natural Mother , UNSURE OF AGE No problems noted. Social History Alcohol intake: never Marital status: Current occupational status: retired History of recent travel: No Physical Exam Const: COMMON NORMALS: alert GENERAL APPEARANCE: cooperative and well developed HENMT: COMMON NORMALS: normocephalic and atraumatic HEAD & SCALP: normocephalic and atraumatic Eye: COMMON NORMALS: conjunctivae normal CONJUNCTIVA: Yes conjunctivae normal SCLERA: sclerae normal Neck/C-Spine: COMMON NORMALS: supple GENERAL: Yes trachea midline Resp: COMMON NORMALS: normal respiratory effort and clear to auscultation bilaterally EFFORT & INSPECTION: Yes able to speak in complete sentences AUSCULTATION: clear to auscultation bilaterally Cardio: COMMON NORMALS: regular rate and regular rhythm RATE: regular rate RHYTHM: regular rhythm GI: COMMON NORMALS: Soft to palpation PALPATION: Yes Soft to palpation and No Tenderness to palpation present (GI) PERCUSSION: normal to percussion : OTHER: post op, no evidence of infection or bleeding Extremity: GENERAL: Yes normal exam except as noted and No edema Neuro: COMMON NORMALS: moves all extremities SENSORIUM/ORIENTATION: Yes alert and No Orientation impaired Psych: COMMON NORMALS: mental status grossly normal and Normal thought process present THOUGHT PROCESS: Normal thought process present Course ED course: - Patient was seen and evaluated by me at bedside - Patient placed on cardiac monitors, IV access obtained - Initial evaluation notable for exam as above - aspirin given - Labs notable for no leukocytosis. Metabolic panel without acute derangement requiring intervention, BNP is mildly elevated. D-dimer negative. Negative Covid test from 12/20/2021. - Imaging notable for no acute finding on chest x-ray - Upon serial reexamination after treatment the patient was similar. - Based on patient history, evaluation, labs, and imaging as interpreted the most likely cause of the patient's condition is chest pain of unclear etiology. - I discussed this case with cardiology, recommend start Lasix and have close cardiology follow-up. Patient had nuclear medicine study of myocardial perfusion on 12/01/2021 as part of preoperative clearance, this was reviewed by cardiology during her discussion. - The results of ED evaluation were discussed with the patient including prescriptions and/or symptomatic cares (if applicable) including appropriate and responsible use, followup plan, and return precautions. The patient verbalized understanding and felt safe for discharge. - Patient discharged in satisfactory condition. Note: Click bubbles or prepopulated petty in note writing are used for assistance with data collection and billing and are inherently more limited than narrative and other text portions of this note. Please use narrative for additional clinical history and defer to narrative/free test for any case of contradictory information. If information appears in only free text or click bubble it should be considered present or absent as reported. Please contact note greeting card writer for clarifications of clinical information or contradictory information. MDM is a brief summary, contradictory or erroneous seeming information should be clarified and full note should be reviewed. Vital Signs: Vital signs: Vital Signs Temperature 98.0 F 12/29/21 08:25 Pulse Rate 73 12/29/21 11:30 Respiratory Rate 16 12/29/21 11:30 Blood Pressure 120/68 12/29/21 11:30 Pulse Oximetry 97 12/29/21 10:29 MDM - Chest Pain Medical Decision Making 71-year-old gentleman with history of atrial fibrillation and recent orchiectomy presenting with chest discomfort. Troponins negative and EKG nonischemic. Patient had stress test at part of preoperative evaluation on 12/01/2021. Case was discussed with cardiology. Patient to be started on Lasix and follow-up in the outpatient setting. Satisfactory for discharge. Medical Records I reviewed the patient's medical records. Lab Data I reviewed the patient's lab results. : 12/29/21 09:18 12/29/21 09:18 Radiology Impressions Chest X-Ray 12/29/21 08:17 IMPRESSION: No acute chest abnormality. Laboratory Results WBC 8.1 10^3/uL (4.0-10.0) 12/29/21 09:18 RBC 4.36 10^6/uL (4.1-5.3) 12/29/21 09:18 Hgb 13.4 g/dL (11.7-16.6) 12/29/21 09:18 Hct 40.2 % (42.0-52.0) L 12/29/21 09:18 MCV 92.2 fl (80-94) 12/29/21 09:18 MCH 30.7 pg (28.0-34.0) 12/29/21 09:18 MCHC 33.3 g/dL (30.0-36.0) 12/29/21 09:18 RDW 13.1 % (12.1-15.1) 12/29/21 09:18 Plt Count 211 10^3/cmm (130-400) 12/29/21 09:18 MPV 10.0 fL (7.4-10.4) 12/29/21 09:18 Neut % (Auto) 62.1 % 12/29/21 09:18 Lymph % (Auto) 26.4 % 12/29/21 09:18 [place] % (Auto) 9.5 % 12/29/21 09:18 Eos % (Auto) 0.6 % 12/29/21 09:18 Baso % (Auto) 0.9 % 12/29/21 09:18 Neut # (Auto) 5.03 10^3/uL (1.8-7.7) 12/29/21 09:18 Lymph # (Auto) 2.1 10^3/uL (0.8-4.8) 12/29/21 09:18 [place] # (Auto) 0.8 10^3/uL (0.2-0.9) 12/29/21 09:18 Eos # (Auto) 0.1 10^3/uL (0.0-0.8) 12/29/21 09:18 Baso # (Auto) 0.1 10^3/uL (0.0-0.1) 12/29/21 09:18 Nucleated RBC % (auto) 0 % 12/29/21 09:18 Nucleated RBCs # 0.0 /100WBC 12/29/21 09:18 D-Dimer 0.55 ug/mIFEU (0-0.59) 12/29/21 10:08 Sodium 136 mmol/L (136-145) 12/29/21 09:18 Potassium 4.3 mmol/L (3.5-5.1) 12/29/21 09:18 Chloride 103 mmol/L (98-107) 12/29/21 09:18 Carbon Dioxide 21 mmol/L (22-29) L 12/29/21 09:18 Anion Gap 16.3 (5-19) 12/29/21 09:18 BUN 14 mg/dL (8-23) 12/29/21 09:18 Creatinine 0.8 mg/dL (0.7-1.2) 12/29/21 09:18 GFR Calculation Not Reportable 12/29/21 09:18 Glucose 92 mg/dL (65-115) 12/29/21 09:18 Calculated Osmolality 282 mOsm/kg (285-295) L 12/29/21 09:18 Calcium 9.2 mg/dL (8.5-10.5) 12/29/21 09:18 Total Bilirubin 0.7 mg/dL (0.15-1.2) 12/29/21 09:18 AST 14 U/L (0-40) 12/29/21 09:18 ALT 16 U/L (0-41) 12/29/21 09:18 Alkaline Phosphatase 41 IU/L (40-130) 12/29/21 09:18 Troponin T Baseline 8 ng/L (0-15) 12/29/21 09:18 Troponin T 120 Minute 8.64 ng/L (0-15) 12/29/21 10:08 Delta Troponin T 0.64 ABS# (0-10) 12/29/21 10:08 NT-Pro-B Natriuret Pep 1492 pg/mL (0-125) H 12/29/21 09:18 Total Protein 6.1 g/dL (6.6-8.7) L 12/29/21 09:18 Albumin 3.8 g/dL (3.5-5.2) 12/29/21 09:18 Globulin 2.3 g/dL (1.3-4.6) 12/29/21 09:18 Lipase 24 U/L (13-60) 12/29/21 09:18 TSH 0.68 uIU/mL (0.27-4.20) 12/29/21 09:18 EKG Data EKG 1: I personally reviewed and interpreted this EKG as follows: EKG interpretation date: 12/29/21 EKG interpretation time: 08:27 Interpretation: Twelve-lead EKG shows an irregular rhythm at a rate of 86. No WA interval, QRS duration 82, QTc 393. Left axis deviation. Interpretation: Atrial fibrillation rhythm. Ectopy. EKG 2: I personally reviewed and interpreted this EKG as follows: EKG interpretation date: 12/29/21 EKG interpretation time: 11:00 Interpretation: Twelve-lead EKG shows an irregular rhythm at a rate of 68. No WA interval, QRS duration 90, QTc 392. Left axis deviation. Interpretation: Atrial fibrillation Discharge Plan Discharge Patient Disposition: Home Clinical Impression: Chest pain, Atrial fibrillation Condition: Stable Prescriptions: New Eliquis 5 mg tablet 5 mg PO BID 30 Days Qty: 60 0RF Rx Instructions: 340b program Lasix 20 mg tablet 20 mg PO BID 30 Days Qty: 60 0RF Klor-Con M20 20 mEq tablet,ER particles/crystals 20 meq PO DAILY Qty: 30 0RF No Action fluoxetine 10 mg capsule 10 mg PO DAILY 0RF pravastatin 10 mg tablet 10 mg PO BEDTIME Qty: 30 6RF metoprolol tartrate 25 mg tablet 25 mg PO BID Qty: 60 6RF Eliquis 5 mg tablet 5 mg PO BID Qty: 180 3RF Hold Instructions: Resume on 12/30/21. hydrocodone-acetaminophen 5-325 mg tablet 1 tab PO Q8H PRN (Reason: pain) Qty: 10 0RF Discharge Orders: Discharge ED (Routine); Ordered 12/29/21 Ordered By: Rajan Goncalves Other Ambulatory Orders: Basic Metabolic Panel (Routine) Timeframe: 1 Week Facility: [facility] - Location: Lab - Main Lab Ordered By: Rajan Goncalves Referrals: Greg Aguilar MD [Primary Care Provider] - Discharge Diet: Usual diet Discharge Activity: Resume usual activity Patient Instructions: Apixaban (By mouth), Chest Pain (ED) Activity Restrictions/Additional Instructions: Thank you for visiting the emergency department. You were seen and evaluated for chest discomfort. The exact cause of your symptoms is unclear however after discussion with cardiology does not require inpatient management at this time. You will be started on Lasix at a low dose, this helps get rid of extra fluid which may contribute to your symptoms. Please follow-up with cardiology in 1 week. Please have blood drawn prior to this appointment. You will be prescribed Eliquis as a refill. Please continue to take this as directed and restart it as directed by Dr. Edwards. You will require a follow-up appointment for refill which can be done via telehealth with Dr. Merino. Please call his office for appointment. Please return to the emergency department for worsening symptoms or anything else that you are concerned about and feel needs emergency department evaluation. Coding Level of Care Code ED Career Technical Education Instructor for Morena Lindsay Exam Comprehensive
[2021-12-29 09:29] VITALS: BP 108/66; PULSE 66; RESP 19; O2SAT 97
[2021-12-29 09:30] LABS: Basophils # 0.1 10^3/uL (0.0-0.1); Basophils % 0.9 %; Eosinophils # 0.1 10^3/uL (0.0-0.8); Eosinophils % 0.6 %; Hematocrit 40.2 % (42.0-52.0); Hemoglobin 13.4 g/dL (11.7-16.6); Lymphocytes # 2.1 10^3/uL (0.8-4.8); Lymphocytes % 26.4 %; Mean Corpuscular HGB Conc 33.3 g/dL (30.0-36.0); Mean Corpuscular Hemoglobin 30.7 pg (28.0-34.0); Mean Corpuscular Volume 92.2 fl (80-94); Monocytes # 0.8 10^3/uL (0.2-0.9); Monocytes % 9.5 %; Neutrophils # 5.03 10^3/uL (1.8-7.7); Neutrophils % 62.1 %; Nucleated Red Blood Cells % 0 %; Platelet Count 211 10^3/cmm (130-400); Red Blood Count 4.36 10^6/uL (4.1-5.3); Red Cell Distribution Width 13.1 % (12.1-15.1); White Blood Count 8.1 10^3/uL (4.0-10.0)
[2021-12-29] MEDS: aspirin 81 mg Chew Tablet 324 MG PO (09:54)
[2021-12-29 09:58] LABS: Troponin(5th) Baseline 8 ng/L (0-15)
[2021-12-29 10:07] LABS: Alanine Aminotransferase 16 U/L (0-41); Albumin Level 3.8 g/dL (3.5-5.2); Alkaline Phosphatase 41 IU/L (40-130); Anion Gap 16.3 (5-19); Aspartate Amino Transferase 14 U/L (0-40); Blood Urea Nitrogen 14 mg/dL (8-23); Calcium 9.2 mg/dL (8.5-10.5); Carbon Dioxide 21 mmol/L (22-29); Chloride 103 mmol/L (98-107); Globulin 2.3 g/dL (1.3-4.6); Glucose 92 mg/dL (65-115); Lipase 24 U/L (13-60); NT Pro B Type Natriuretic Pept 1492 pg/mL (0-125); Osmolality Calculated 282 mOsm/kg (285-295); Potassium 4.3 mmol/L (3.5-5.1); Sodium 136 mmol/L (136-145); Total Bilirubin 0.7 mg/dL (0.15-1.2); Total Protein 6.1 g/dL (6.6-8.7)
--- NOTE | 2021-12-29 10:17 | ECG_ITS ---
[facility] Test Date: 2021-12-29 Pat Name: Vladimir Melgar Department: Room: Gender: Male Transit Mix Operator: : 1950 Requested By: Serenity Pollard Order Number: [id number] Markell MD: Fili Peterson M.D. Measurements Intervals [place] Rate: 86 P: NE: QRS: -9 QRSD: 82 T: 12 QT: 350 QTc: 419 Interpretive Statements ATRIAL FIBRILLATION WITH ABERRANT CONDUCTION OR VENTRICULAR PREMATURE COMPLEXES LOW QRS VOLTAGE IN PRECORDIAL LEADS [QRS DEFLECTION < 1.0 mV IN CHEST LEADS] POSSIBLE ANTERIOR MYOCARDIAL INFARCTION , OF INDETERMINATE AGE [30 ms Q WAVE IN V3/V4, OR R < 0.2 mV IN V4] Compared to ECG 11/13/2021 22:56:54 No significant changes Electronically Signed On 12-29-2021 18:35:24 ITALIAN LECTURER by Fili Peterson M.D. [id number]
[2021-12-29 10:28] LABS: D Dimer 0.55 ug/mIFEU (0-0.59)
[2021-12-29 10:29] VITALS: BP 122/67; PULSE 65; RESP 18; O2SAT 97
[2021-12-29 10:43] LABS: Troponin 5 2HR 8.64 ng/L (0-15)
[2021-12-29 10:44] LABS: Troponin 5 2HR Delta 0.64 ABS# (0-10)
[2021-12-29 11:29] LABS: Thyroid Stimulating Hormone 0.68 uIU/mL (0.27-4.20)
[2021-12-29 11:30] VITALS: BP 120/68; PULSE 73; RESP 16
--- NOTE | 2021-12-29 11:54 | PC.NURSE ---
REVIEWED DISCHARGE INSTRUCTIONS WITH PATIENT AND SPOUSE, BOTH VERBALIZE UNDERSTANDING OF ALL INSTRUCTIONS, MEDICATIONS AND FOLLOW UPS, PATIENT AMBULATED FROM ED WITH CRUTCH
== END 2021-12-29 11:50 | disposition home or self-care (01) ==
PROVIDERS: Physician Assistant; Emergency Provider Emergency Medicine; PCP Family Medicine
DX: R07.9 Chest pain, unspecified (principal); I48.91 Unspecified atrial fibrillation; Z79.01 Long term (current) use of anticoagulants
CPT/HCPCS: 36415; 71045; 80053; 83690; 83880; 84443; 84484; 85025; 85378; 93005; 99283

== ENCOUNTER 2021-12-31 15:25 | Emergency (ER) | payer MEDICARE, SELFPAY ==
[2021-12-31 15:30] VITALS: BP 122/82; PULSE 58; RESP 16; TEMP 36.6; O2SAT 98; BMI 29.0
--- NOTE | 2021-12-31 15:51 | XR_ITS ---
WS: [id number] XR chest 1V portable [id number] REASON FOR EXAM: chest pain FINDINGS: The chest is unchanged compared to 2 12/29/2021. There is moderate tortuosity and ectasia of the thoracic aorta without aneurysmal dilatation. There is no significant cardiomegaly. There is calcified granulomatous change in both hemithoraces. No acute pulmonary parenchymal or pleural disease is identified. Degenerative changes in the mid and lower thoracic spine and the right shoulder joint. The bony thora x is otherwise unremarkable. XR/XR chest 1V portable [id number] IMPRESSION: No acute chest abnormality.
--- NOTE | 2021-12-31 15:52 | ECG_ITS ---
[facility] Test Date: 2021-12-31 Pat Name: Vladimir Melgar Department: Room: Gender: Male Tip Printer: : 1950 Requested By: Rajan Goncalves Order Number: [id number] Guillaume MD: Fili Peterson M.D. Measurements Intervals [place] Rate: 88 P: [place]: QRS: -22 QRSD: 87 T: 6 QT: 335 QTc: 406 Interpretive Statements ATRIAL FIBRILLATION BORDERLINE LEFT AXIS DEVIATION [QRS AXIS < -20] NONSPECIFIC T-WAVE ABNORMALITY Compared to ECG 12/29/2021 10:54:26 T-wave abnormality now present Ventricular premature complex(es) no longer present Aberrant conduction of supraventricular beat(s) no longer present Myocardial infarct finding no longer present Electronically Signed On 12-31-2021 17:38:06 INTRANET SUPPORT by Fili Peterson M.D. [email or web address]/[id number]
== END 2021-12-31 16:19 ==
LOC: ER 15:29
PROVIDERS: Emergency Provider Family Medicine; PCP Family Medicine
DX: Z53.21 Procedure and treatment not carried out due to patient leaving prior to being seen by health care provider (principal)
CPT/HCPCS: 71045; 93005

== ENCOUNTER → 2022-03-17 09:55 | Outpatient (BNVA) | payer MEDICARE, OTHER, SELFPAY | PROVIDERS: PCP Family Medicine; Visit Provider Internal Medicine Cardiovascular Disease | DX: I48.91 Unspecified atrial fibrillation (principal); R94.39 Abnormal result of other cardiovascular function study; E66.9 Obesity, unspecified; Z68.30 Body mass index [BMI] 30.0-30.9, adult; F41.9 Anxiety disorder, unspecified; Z79.01 Long term (current) use of anticoagulants | CPT/HCPCS: 99214 ==

== ENCOUNTER 2022-09-18 15:43 | Emergency (ER) | payer MEDICARE, OTHER, SELFPAY ==
[2022-09-18 15:45] VITALS: BMI 25.8
[2022-09-18 15:50] VITALS: BP 160/86; PULSE 99; RESP 17; TEMP 36.7; O2SAT 97
--- NOTE | 2022-09-18 15:50 | ECG_ITS ---
[facility] Test Date: 2022-09-18 Pat Name: Vladimir Melgar Department: Room: Gender: Male Disaster Recovery Manager: : 1950 Requested By: Fifi Pierson Order Number: [id number] Markell MD: Jessica Patricia M.D. Measurements Intervals [place] Rate: 85 P: MO: QRS: -34 QRSD: 84 T: 50 QT: 384 QTc: 458 Interpretive Statements ATRIAL FIBRILLATION LEFT AXIS DEVIATION [QRS AXIS < -30] LOW QRS VOLTAGE IN PRECORDIAL LEADS [QRS DEFLECTION < 1.0 mV IN CHEST LEADS] MINIMAL ST DEPRESSION Compared to ECG 12/31/2021 15:38:02 Low QRS voltage now present ST (T wave) deviation now present T-wave abnormality no longer present Electronically Signed On 09-18-2022 21:45:16 CDT by Jessica Patricia M.D. [id number]
--- NOTE | 2022-09-18 16:32 | ED_ITS ---
Documented by User: Fifi Peterson MD 09/18/22 17:56 HPI - Nausea/Vomiting/Diarrhea General: Chief complaint: Nausea/Vomiting/Diarrhea Stated complaint: heart racing Time Seen by Provider: 09/18/22 16:32 History of Present Illness: This patient is a 72 year old presenting to the ER with chest pain, vomiting, feeling that his heart is racing. He also complains of feeling very dizzy. This morning he had some loose stools. He went to [employer] and when they came home and had lunch he started feeling badly afterward. Family estimates it was about 1:00 when he started complaining of the symptoms. He has had consistent vomiting and chest pain that radiates up into his shoulders and his back. He has a history of A. fib which was just diagnosed in the past year. He is on apixaban. He has never had a heart attack. He does have high blood pressure and high cholesterol. He is not a smoker. He has had subjective chills. No documented fever. No one else in the household has been ill. Associated nausea: Yes Associated symtoms: Reports chest pain, dizziness and nausea; Denies change in vision, fatigue or malaise Review of Systems Const: Reports: chills; Denies: fever(s), fatigue or malaise Eyes: Denies: change in vision ENMT: Denies: odynophagia Card: Reports: chest pain, irregular heart rhythm and lightheadedness Resp: Denies: dyspnea, productive cough or non-productive cough GI: Reports: nausea, vomiting and diarrhea : Denies: flank pain Musc: Denies: neck pain or back pain Skin/Breast: Denies: rash Neuro: Reports: dizziness Drake/Lymph: Denies: easy bruising or easy bleeding PFSH ED PFSH: Medical History Adult BMI 30.0-30.9 kg/sq m Anxiety Right epididymitis Right testicular pain Surgical History History of orchiectomy Family History Father , AT 92 Natural Mother , UNSURE OF AGE No problems noted. Social History Smoking and tobacco status: never smoked Alcohol intake: never Marital status: Current occupational status: retired History of recent travel: No Physical Exam Const: COMMON NORMALS: average body habitus, patient oriented x3, alert and well nourished GENERAL APPEARANCE: cooperative, comfortable, well kempt and well developed ORIENTATION/CONSCIOUSNESS: Yes oriented to person, Yes oriented to place and Yes oriented to time HENMT: COMMON NORMALS: normocephalic, atraumatic, hearing grossly normal bilaterally, external ears normal and Normal external nose present HEAD & SCALP: normocephalic and atraumatic FACE & SINUS: face symmetric NOSE: Normal external nose present EXTERNAL EAR: Yes external ears normal Eye: COMMON NORMALS: Equal, round and reactive pupils present and conjunctivae normal CONJUNCTIVA: Yes conjunctivae normal SCLERA: sclerae normal PUPIL: Yes Equal, round and reactive pupils present Neck/C-Spine: COMMON NORMALS: supple and no JVD; negative for No carotid bruits Chest: COMMONS NORMALS: normal inspection of the chest CHEST: Yes Symmetrical chest wall rise and No tenderness Resp: COMMON NORMALS: normal respiratory effort, No use of accessory muscles and clear to auscultation bilaterally AUSCULTATION: clear to auscultation bilaterally, no crackles, no rales, no rhonchi and no wheezes Cardio: COMMON NORMALS: no JVD, S1 normal heart sound present, S2 normal heart sound present and Peripheral pulses 2+ throughout JUGULAR VENOUS DISTENTION: no JVD PALPATION: normal PMI and no heave RHYTHM: abnormal rhythm irregularly irregular HEART SOUNDS: S1 normal heart sound present, S2 normal heart sound present, no gallops and no murmurs BRUITS: no carotid bruits PERIPHERAL PULSES: Peripheral pulses 2+ throughout GI: COMMON NORMALS: Normal to inspection, nondistended, normoactive bowel sounds present and Soft to palpation PALPATION: Yes Soft to palpation and Yes Tenderness to palpation present (GI) (Mild, diffuse) RECTAL EXAM: Yes deferred Extremity: COMMON NORMALS: normal to inspection, no clubbing, cyanosis or edema, no calf tenderness and no pedal edema OTHER: Using crutches as needed Neuro: COMMON NORMALS: patient oriented x3, no focal motor deficits and gait normal SENSORIUM/ORIENTATION: Yes alert, Yes oriented to person, Yes oriented to place and Yes oriented to time CRANIAL NERVES: Yes CN normal except as noted Psych: COMMON NORMALS: Normal thought process present APPEARANCE: Yes well kempt MOOD & AFFECT: Yes euthymic mood THOUGHT PROCESS: Normal thought process present THOUGHT CONTENT: Yes Normal thought content present ATTENTION/CONCENTRATION: Yes attention grossly intact MEMORY/COGNITION: Yes memory grossly intact INSIGHT: Good insight present (Psych) JUDGEMENT: Good judgement present (Psych) Course Vital Signs: Vital signs: Vital Signs Temperature 98.0 F 09/18/22 15:50 Pulse Rate 90 09/18/22 20:58 Respiratory Rate 16 09/18/22 20:58 Blood Pressure 145/87 09/18/22 20:58 Pulse Oximetry 98 09/18/22 20:58 Oxygen Delivery Me thod 09/18/22 15:50 MDM - Nausea/Vomiting/Diarrhea Medical Decision Making Patient appears very uncomfortable and obviously feels poorly. He is laying with his eyes closed. He still complains of chest pain which has been intermittent but without pattern. EKG does not show any ST elevation or depression. It is A. fib but rate controlled at a rate of 85. Abdomen is mildly diffusely tender. Labs pending. White count is not elevated. Hemoglobin is normal. CO2 is 20. Lactic is slightly elevated. Patient was given IV fluids, pain medicine and antiemetics. On recheck at 5:50 PM he is looking somewhat better. He said the chest pain is gone. He is still feeling very nauseous and ill. CT of the chest abdomen and pelvis is ordered. This is to evaluate his aorta as well as GI sources of his symptoms. EKG is normal other than A. fib which is rate controlled. Care turned over to Dr. Chris Lab Data : 09/18/22 16:35 09/18/22 16:35 Radiology Impressions Chest X-Ray 09/18/22 16:38 IMPRESSION: No acute findings. Chest/Abdomen/Pelvis CT 09/18/22 17:38 IMPRESSION: 1. No acute findings. 2. Incidental findings above. IMPRESSION: 1. No acute findings. 2. Short segment colonic wall thickening and luminal narrowing in the proximal sigmoid colon. Possible focal muscular contraction or neoplasm. Consider follow-up colonoscopy or repeat CT with rectal contrast. 3. Incidental findings above. COMMENTS: Consistent with the [employer]'s Incidental Findings Committee white paper (J Am Shukri Radiol 2018): Any incidental renal lesion less than 1 cm or classified as too small to characterize, or any incidental cystic renal lesion characterized as simple-appearing, is likely benign. No follow-up imaging is recommended for these lesions per consensus recommendations based on imaging criteria. Laboratory Results WBC 9.4 10^3/uL (4.0-10.0) 09/18/22 16:35 RBC 4.65 10^6/uL (4.1-5.3) 09/18/22 16:35 Hgb 14.5 g/dL (11.7-16.6) 09/18/22 16:35 Hct 41.2 % (42.0-52.0) L 09/18/22 16:35 MCV 88.6 fl (80-94) 09/18/22 16:35 MCH 31.2 pg (28.0-34.0) 09/18/22 16:35 MCHC 35.2 g/dL (30.0-36.0) 09/18/22 16:35 RDW 12.8 % (12.1-15.1) 09/18/22 16:35 Plt Count 210 10^3/cmm (130-400) 09/18/22 16:35 MPV 10.2 fL (7.4-10.4) 09/18/22 16:35 Neut % (Auto) 68.7 % 09/18/22 16:35 Lymph % (Auto) 22.0 % 09/18/22 16:35 Blount % (Auto) 7.3 % 09/18/22 16:35 Eos % (Auto) 0.7 % 09/18/22 16:35 Baso % (Auto) 0.7 % 09/18/22 16:35 Neut # (Auto) 6.43 10^3/uL (1.8-7.7) 09/18/22 16:35 Lymph # (Auto) 2.1 10^3/uL (0.8-4.8) 09/18/22 16:35 Blount # (Auto) 0.7 10^3/uL (0.2-0.9) 09/18/22 16:35 Eos # (Auto) 0.1 10^3/uL (0.0-0.8) 09/18/22 16:35 Baso # (Auto) 0.1 10^3/uL (0.0-0.1) 09/18/22 16:35 Nucleated RBC % (auto) 0 % 09/18/22 16:35 Nucleated RBCs # 0.0 /100WBC 09/18/22 16:35 Sodium 138 mmol/L (136-145) 09/18/22 16:35 Potassium 3.6 mmol/L (3.5-5.1) 09/18/22 16:35 Chloride 101 mmol/L (98-107) 09/18/22 16:35 Carbon Dioxide 20 mmol/L (22-29) L 09/18/22 16:35 Anion Gap 20.6 (5-19) H 09/18/22 16:35 BUN 16 mg/dL (8-23) 09/18/22 16:35 Creatinine 1.0 mg/dL (0.7-1.2) 09/18/22 16:35 GFR Calculation Not Reportable 09/18/22 16:35 Glucose 151 mg/dL (65-115) H 09/18/22 16:35 Calculated Osmolality 290 mOsm/kg (285-295) 09/18/22 16:35 Lactic Acid 2.4 mmol/L (0.5-2.2) H 09/18/22 16:54 Lactic Acid (Sepsis) 1.7 mmol/L (0.5-2.2) 09/18/22 17:46 Calcium 9.9 mg/dL (8.5-10.5) 09/18/22 16:35 Magnesium 1.9 mg/dL (1.7-2.3) 09/18/22 16:35 Total Bilirubin 0.6 mg/dL (0.15-1.2) 09/18/22 16:35 AST 13 U/L (0-40) 09/18/22 16:35 ALT 9 U/L (0-41) 09/18/22 16:35 Alkaline Phosphatase 55 U/L (40-130) 09/18/22 16:35 Troponin T Baseline 6 ng/L (0-15) 09/18/22 16:35 Troponin T 120 Minute 9.27 ng/L (0-15) 09/18/22 18:50 Delta Troponin T 3.27 ABS# (0-10) 09/18/22 18:50 Total Protein 7.8 g/dL (6.6-8.7) 09/18/22 16:35 Albumin 4.1 g/dL (3.5-5.2) 09/18/22 16:35 Globulin 3.7 g/dL (1.3-4.6) 09/18/22 16:35 Lipase 29 U/L (13-60) 09/18/22 16:35 Urine Color Yellow (Yellow) 09/18/22 18:46 Urine Appearance Clear (CLEAR) 09/18/22 18:46 Urine pH 9 (5-7) H 09/18/22 18:46 Ur Specific Marshall 1.010 (1.005-1.030) 09/18/22 18:46 Urine Protein Neg (Negative) 09/18/22 18:46 Urine Glucose (UA) Norm (Normal) 09/18/22 18:46 Urine Ketones Negative (Negative) 09/18/22 18:46 Urine Blood 2+ (Negative) H 09/18/22 18:46 Urine Nitrate Negative (Negative) 09/18/22 18:46 Urine Bilirubin Neg (Negative) 09/18/22 18:46 Prot Sulfosalicylic Acd Negative (Negative) 09/18/22 18:46 Urine Urobilinogen Neg mg/dL (Negative) 09/18/22 18:46 Ur Leukocyte Esterase Negative (Negative) 09/18/22 18:46 Urine RBC 5-10 /hpf (0-2) H 09/18/22 18:46 Urine WBC 0-4 /hpf (0-5) H 09/18/22 18:46 Ur Squamous Epith Cells 0-4 /hpf (0-5) H 09/18/22 18:46 Amorphous Sediment Not Reportable 09/18/22 18:46 Urine Bacteria Trace /hpf (NONE) 09/18/22 18:46 Discharge Plan Discharge Patient Disposition: Home Clinical Impression: Atrial fibrillation and flutter, Chest pain, Vomiting Condition: Stable Prescriptions: New ondansetron 4 mg film 4 mg PO DAILY PRN (Reason: nausea and vomiting) Qty: 10 0RF No Action apixaban 5 mg tablet 5 mg PO BID Qty: 180 2RF Rx Instructions: 340b plan fluoxetine 10 mg capsule 10 mg PO DAILY Qty: 90 3RF Rx Instructions: 340b plan metoprolol tartrate 25 mg tablet 12.5 mg PO BID Qty: 90 3RF Rx Instructions: 340b plan pravastatin 10 mg tablet 10 mg PO BEDTIME Qty: 90 3RF Rx Instructions: 340b plan Discharge Orders: Discharge ED (Routine); Ordered 09/18/22 Ordered By: Maurilio Chris Referrals: Greg Aguilar MD [Primary Care Provider] - 1-3 days Patient Instructions: Chest Pain (ED), Vomiting - Adult Activity Restrictions/Additional Instructions: Take the medication you were prescribed every 6 hours while awake for the first 24 hours, then as needed. Follow a liquid diet for the first 24 hours, then advance slowly as tolerated. Return for vomiting despite treatment, worsening abdominal or chest pain, worsening shortness of breath, or any other concerning symptoms. See your doctor this coming week, as further outpatient testing may be needed. Coding Level of Care Code ED Dental Laboratory Worker for Chg Fwd Exam Comprehensive Documented by User: Maurilio Chris DO 09/18/22 21:08 HPI - Nausea/Vomiting/Diarrhea General: Chief complaint: Nausea/Vomiting/Diarrhea Stated complaint: heart racing Time Seen by Provider: 09/18/22 16:32 PFS ED PFSH: Medical History Adult BMI 30.0-30.9 kg/sq m Anxiety Right epididymitis Right testicular pain Surgical History History of orchiectomy Family History Father , AT 92 Natural Mother , UNSURE OF AGE No problems noted. Social History Smoking and tobacco status: never smoked Alcohol intake: never Marital status: Current occupational status: retired History of recent travel: No Course Vital Signs: Vital signs: Vital Signs Temperature 98.0 F 09/18/22 15:50 Pulse Rate 90 09/18/22 20:58 Respiratory Rate 16 09/18/22 20:58 Blood Pressure 145/87 09/18/22 20:58 Pulse Oximetry 98 09/18/22 20:58 Oxygen Delivery Me thod 09/18/22 15:50 MDM - Nausea/Vomiting/Diarrhea Medical Decision Making Patient appears very uncomfortable and obviously feels poorly. He is laying with his eyes closed. He still complains of chest pain which has been intermittent but without pattern. EKG does not show any ST elevation or depression. It is A. fib but rate controlled at a rate of 85. Abdomen is mildly diffusely tender. Labs pending. White count is not elevated. Hemoglobin is normal. CO2 is 20. Lactic is slightly elevated. Patient was given IV fluids, pain medicine and antiemetics. On recheck at 5:50 PM he is looking somewhat better. He said the chest pain is gone. He is still feeling very nauseous and ill. CT of the chest abdomen and pelvis is ordered. This is to evaluate his aorta as well as GI sources of his symptoms. EKG is normal other than A. fib which is rate controlled. Care turned over to Dr. Chris Care turned over to me by previous physician at shift change. CT does not reveal a cause of vomiting or belly pain. There is a focal muscle spasm in the sigmoid, which needs follow-up. This is explained to the patient. His nausea is somewhat better although he still nauseated. He is given another dose of Zofran for this. He will be allowed home on Zofran, and liquid diet. Symptomatic treatment. Lab Data : 09/18/22 16:35 09/18/22 16:35 Radiology Impressions Chest X-Ray 09/18/22 16:38 IMPRESSION: No acute findings. Chest/Abdomen/Pelvis CT 09/18/22 17:38 IMPRESSION: 1. No acute findings. 2. Incidental findings above. IMPRESSION: 1. No acute findings. 2. Short segment colonic wall thickening and luminal narrowing in the proximal sigmoid colon. Possible focal muscular contraction or neoplasm. Consider follow-up colonoscopy or repeat CT with rectal contrast. 3. Incidental findings above. COMMENTS: Consistent with the [employer]'s Incidental Findings Committee white paper (J Am Shukri Radiol 2018): Any incidental renal lesion less than 1 cm or classified as too small to characterize, or any incidental cystic renal lesion characterized as simple-appearing, is likely benign. No follow-up imaging is recommended for these lesions per consensus recommendations based on imaging criteria. Laboratory Results WBC 9.4 10^3/uL (4.0-10.0) 09/18/22 16:35 RBC 4.65 10^6/uL (4.1-5.3) 09/18/22 16:35 Hgb 14.5 g/dL (11.7-16.6) 09/18/22 16:35 Hct 41.2 % (42.0-52.0) L 09/18/22 16:35 MCV 88.6 fl (80-94) 09/18/22 16:35 MCH 31.2 pg (28.0-34.0) 09/18/22 16:35 MCHC 35.2 g/dL (30.0-36.0) 09/18/22 16:35 RDW 12.8 % (12.1-15.1) 09/18/22 16:35 Plt Count 210 10^3/cmm (130-400) 09/18/22 16:35 MPV 10.2 fL (7.4-10.4) 09/18/22 16:35 Neut % (Auto) 68.7 % 09/18/22 16:35 Lymph % (Auto) 22.0 % 09/18/22 16:35 Blount % (Auto) 7.3 % 09/18/22 16:35 Eos % (Auto) 0.7 % 09/18/22 16:35 Baso % (Auto) 0.7 % 09/18/22 16:35 Neut # (Auto) 6.43 10^3/uL (1.8-7.7) 09/18/22 16:35 Lymph # (Auto) 2.1 10^3/uL (0.8-4.8) 09/18/22 16:35 Blount # (Auto) 0.7 10^3/uL (0.2-0.9) 09/18/22 16:35 Eos # (Auto) 0.1 10^3/uL (0.0-0.8) 09/18/22 16:35 Baso # (Auto) 0.1 10^3/uL (0.0-0.1) 09/18/22 16:35 Nucleated RBC % (auto) 0 % 09/18/22 16:35 Nucleated RBCs # 0.0 /100WBC 09/18/22 16:35 Sodium 138 mmol/L (136-145) 09/18/22 16:35 Potassium 3.6 mmol/L (3.5-5.1) 09/18/22 16:35 Chloride 101 mmol/L (98-107) 09/18/22 16:35 Carbon Dioxide 20 mmol/L (22-29) L 09/18/22 16:35 Anion Gap 20.6 (5-19) H 09/18/22 16:35 BUN 16 mg/dL (8-23) 09/18/22 16:35 Creatinine 1.0 mg/dL (0.7-1.2) 09/18/22 16:35 GFR Calculation Not Reportable 09/18/22 16:35 Glucose 151 mg/dL (65-115) H 09/18/22 16:35 Calculated Osmolality 290 mOsm/kg (285-295) 09/18/22 16:35 Lactic Acid 2.4 mmol/L (0.5-2.2) H 09/18/22 16:54 Lactic Acid (Sepsis) 1.7 mmol/L (0.5-2.2) 09/18/22 17:46 Calcium 9.9 mg/dL (8.5-10.5) 09/18/22 16:35 Magnesium 1.9 mg/dL (1.7-2.3) 09/18/22 16:35 Total Bilirubin 0.6 mg/dL (0.15-1.2) 09/18/22 16:35 AST 13 U/L (0-40) 09/18/22 16:35 ALT 9 U/L (0-41) 09/18/22 16:35 Alkaline Phosphatase 55 U/L (40-130) 09/18/22 16:35 Troponin T Baseline 6 ng/L (0-15) 09/18/22 16:35 Troponin T 120 Minute 9.27 ng/L (0-15) 09/18/22 18:50 Delta Troponin T 3.27 ABS# (0-10) 09/18/22 18:50 Total Protein 7.8 g/dL (6.6-8.7) 09/18/22 16:35 Albumin 4.1 g/dL (3.5-5.2) 09/18/22 16:35 Globulin 3.7 g/dL (1.3-4.6) 09/18/22 16:35 Lipase 29 U/L (13-60) 09/18/22 16:35 Urine Color Yellow (Yellow) 09/18/22 18:46 Urine Appearance Clear (CLEAR) 09/18/22 18:46 Urine pH 9 (5-7) H 09/18/22 18:46 Ur Specific Marshall 1.010 (1.005-1.030) 09/18/22 18:46 Urine Protein Neg (Negative) 09/18/22 18:46 Urine Glucose (UA) Norm (Normal) 09/18/22 18:46 Urine Ketones Negative (Negative) 09/18/22 18:46 Urine Blood 2+ (Negative) H 09/18/22 18:46 Urine Nitrate Negative (Negative) 09/18/22 18:46 Urine Bilirubin Neg (Negative) 09/18/22 18:46 Prot Sulfosalicylic Acd Negative (Negative) 09/18/22 18:46 Urine Urobilinogen Neg mg/dL (Negative) 09/18/22 18:46 Ur Leukocyte Esterase Negative (Negative) 09/18/22 18:46 Urine RBC 5-10 /hpf (0-2) H 09/18/22 18:46 Urine WBC 0-4 /hpf (0-5) H 09/18/22 18:46 Ur Squamous Epith Cells 0-4 /hpf (0-5) H 09/18/22 18:46 Amorphous Sediment Not Reportable 09/18/22 18:46 Urine Bacteria Trace /hpf (NONE) 09/18/22 18:46 Discharge Plan Discharge Patient Disposition: Home Clinical Impression: Atrial fibrillation and flutter, Chest pain, Vomiting Condition: Stable Prescriptions: New ondansetron 4 mg film 4 mg PO DAILY PRN (Reason: nausea and vomiting) Qty: 10 0RF No Action apixaban 5 mg tablet 5 mg PO BID Qty: 180 2RF Rx Instructions: 340b plan fluoxetine 10 mg capsule 10 mg PO DAILY Qty: 90 3RF Rx Instructions: 340b plan metoprolol tartrate 25 mg tablet 12.5 mg PO BID Qty: 90 3RF Rx Instructions: 340b plan pravastatin 10 mg tablet 10 mg PO BEDTIME Qty: 90 3RF Rx Instructions: 340b plan Discharge Orders: Discharge ED (Routine); Ordered 09/18/22 Ordered By: Maurilio Chris Referrals: Greg Aguilar MD [Primary Care Provider] - 1-3 days Patient Instructions: Chest Pain (ED), Vomiting - Adult Activity Restrictions/Additional Instructions: Take the medication you were prescribed every 6 hours while awake for the first 24 hours, then as needed. Follow a liquid diet for the first 24 hours, then advance slowly as tolerated. Return for vomiting despite treatment, worsening abdominal or chest pain, worsening shortness of breath, or any other concerning symptoms. See your doctor this coming week, as further outpatient testing may be needed. Coding Level of Care Code ED Dental Laboratory Worker for Morena Fwangie Exam Comprehensive
--- NOTE | 2022-09-18 16:38 | XRR_ITS ---
PROCEDURE INFORMATION: Exam: XR Chest Exam date and time: 09/18/2022 4:55 PM Age: 72 years old Clinical indication: Pain; Chest pressure; Additional info: Chest pain TECHNIQUE: Imaging protocol: Radiologic exam of the chest. Views: 1 view. COMPARISON: CR XR chest 1V portable [id number] 12/31/2021 3:56 PM FINDINGS: Lungs: Unremarkable. No consolidation. Pleural spaces: Unremarkable. No pleural effusion. No pneumothorax. Heart/Mediastinum: Unremarkable. No cardiomegaly. Bones/joints: Upper thoracic levoscoliosis. XR/XR chest 1V portable [id number] IMPRESSION: No acute findings.
[2022-09-18 16:45] LABS: Basophils # 0.1 10^3/uL (0.0-0.1); Basophils % 0.7 %; Eosinophils # 0.1 10^3/uL (0.0-0.8); Eosinophils % 0.7 %; Hematocrit 41.2 % (42.0-52.0); Hemoglobin 14.5 g/dL (11.7-16.6); Lymphocytes # 2.1 10^3/uL (0.8-4.8); Mean Corpuscular HGB Conc 35.2 g/dL (30.0-36.0); Mean Corpuscular Hemoglobin 31.2 pg (28.0-34.0); Mean Corpuscular Volume 88.6 fl (80-94); Mean Platelet Volume 10.2 fL (7.4-10.4); Monocytes # 0.7 10^3/uL (0.2-0.9); Monocytes % 7.3 %; Neutrophils # 6.43 10^3/uL (1.8-7.7); Neutrophils % 68.7 %; Nucleated Red Blood Cells % 0 %; Platelet Count 210 10^3/cmm (130-400); Red Blood Count 4.65 10^6/uL (4.1-5.3); Red Cell Distribution Width 12.8 % (12.1-15.1); White Blood Count 9.4 10^3/uL (4.0-10.0)
[2022-09-18] MEDS: sodium chloride 0.9% 1,000 ML 999 ML IV (16:50)
[2022-09-18] MEDS: ondansetron 2 mg/ML SDV 2 mL 4 MG IVP ×2 (16:50→19:52)
[2022-09-18] MEDS: famotidine 20 mg/2 mL INJ 40 MG IVP (16:50)
[2022-09-18 17:15] LABS: Alanine Aminotransferase 9 U/L (0-41); Albumin Level 4.1 g/dL (3.5-5.2); Alkaline Phosphatase 55 U/L (40-130); Anion Gap 20.6 (5-19); Aspartate Amino Transferase 13 U/L (0-40); Blood Urea Nitrogen 16 mg/dL (8-23); Calcium 9.9 mg/dL (8.5-10.5); Carbon Dioxide 20 mmol/L (22-29); Chloride 101 mmol/L (98-107); Creatinine Clr Calc Pharmacy 62.6357; Globulin 3.7 g/dL (1.3-4.6); Glucose 151 mg/dL (65-115); Lipase 29 U/L (13-60); Magnesium 1.9 mg/dL (1.7-2.3); Osmolality Calculated 290 mOsm/kg (285-295); Potassium 3.6 mmol/L (3.5-5.1); Sodium 138 mmol/L (136-145); Total Bilirubin 0.6 mg/dL (0.15-1.2); Total Protein 7.8 g/dL (6.6-8.7)
[2022-09-18 17:16] LABS: Troponin(5th) Baseline 6 ng/L (0-15)
[2022-09-18 17:22] VITALS: BP 127/63; PULSE 79; RESP 14; O2SAT 98
[2022-09-18 17:30] VITALS: BP 127/63; PULSE 72; RESP 15; O2SAT 96
[2022-09-18 17:33] LABS: Lactic Sepsis W/Reflex 2.4 mmol/L (0.5-2.2)
[2022-09-18 17:37] LABS: Reflex Lactate Order REFLEX LACTIC ORDERD
--- NOTE | 2022-09-18 17:38 | CTR_ITS ---
PROCEDURE INFORMATION: Exam: CT Chest With Contrast; Diagnostic Exam date and time: 09/18/2022 5:56 PM Age: 72 years old Clinical indication: Abdominal pain; Chest pressure; Additional info: Chest pain, abdominal pain, vomiting TECHNIQUE: Imaging protocol: Diagnostic computed tomography of the chest with contrast. Radiation optimization: All CT scans at this facility use at least one of these dose optimization techniques: automated exposure control; mA and/or kV adjustment per patient size (includes targeted exams where dose is matched to clinical indication); or iterative reconstruction. Contrast material: OMNIPAQUE 350; Contrast volume: 100 ml; Contrast route: INTRAVENOUS (IV); COMPARISON: CR (CHEST, ) 09/18/2022 4:55 PM RADIATION DOSE METRICS: Total DLP (mGy-cm): 1341.5 FINDINGS: Lungs: There is subsegmental atelectasis in the lung bases. There is no consolidation. Pleural spaces: There is no pleural effusion or pneumothorax. Heart: There is no pericardial effusion. There is mild coronary artery calcification. Heart size is normal. The central pulmonary arteries are unremarkable. Lymph nodes: There is no mediastinal or hilar lymphadenopathy. Vasculature: The aorta is unremarkable. There is no aneurysm. Diaphragm: There is a small sliding-type hiatal hernia. Bones/joints: Bones are unremarkable. Soft tissues: The extrathoracic soft tissues are unremarkable. PROCEDURE INFORMATION: Exam: CT Abdomen And Pelvis With Contrast Exam date and time: 09/18/2022 5:56 PM Age: 72 years old Clinical indication: Abdominal pain; Chest pressure; Additional info: Chest pain, abdominal pain, vomiting TECHNIQUE: Imaging protocol: Computed tomography of the abdomen and pelvis with contrast. Radiation optimization: All CT scans at this facility use at least one of these dose optimization techniques: automated exposure control; mA and/or kV adjustment per patient size (includes targeted exams where dose is matched to clinical indication); or iterative reconstruction. Contrast material: OMNIPAQUE 350; Contrast volume: 100 ml; Contrast route: INTRAVENOUS (IV); COMPARISON: CR (CHEST, ) 09/18/2022 4:55 PM RADIATION DOSE METRICS: Total DLP (mGy-cm): 1341.5 FINDINGS: Lungs: Lung bases are clear. Diaphragm: There is a small sliding-type hiatal hernia. Liver: The liver is normal. Gallbladder and bile ducts: The gallbladder is normal. There is no biliary dilation. Pancreas: The pancreas is unremarkable. Spleen: The spleen is unremarkable. Adrenal glands: The adrenal glands are unremarkable. Kidneys and ureters: There are simple cysts in both kidneys. Nonobstructive stones are seen in both kidneys. There is no hydronephrosis or ureteral dilation. Stomach and bowel: There is a short segment of colonic wall thickening and luminal decompression in the proximal sigmoid colon. There is pancolonic diverticulosis. There is no sign of diverticulitis. The stomach is unremarkable. The small bowel is nondilated. Appendix: The appendix is normal. Intraperitoneal space: There is no free air or significant intraperitoneal free fluid. Vasculature: There is mild aortic atherosclerotic disease. The portal, splenic and superior mesenteric veins are patent. Lymph nodes: There is no lymphadenopathy in the retroperitoneum, mesentery, pelvis or inguinal regions. Urinary bladder: The urinary bladder is unremarkable. Reproductive: There is nonspecific mild enlargement of the prostate gland. Bones/joints: There is moderate degenerative disease in the lumbar spine. The pelvis and hips are unremarkable. Soft tissues: The abdominal wall is intact. CT/CT chest abd pel w con* IMPRESSION: 1. No acute findings. 2. Incidental findings above. IMPRESSION: 1. No acute findings. 2. Short segment colonic wall thickening and luminal narrowing in the proximal sigmoid colon. Possible focal muscular contraction or neoplasm. Consider follow-up colonoscopy or repeat CT with rectal contrast. 3. Incidental findings above. COMMENTS: Consistent with the [employer]'s Incidental Findings Committee white paper (J Am Shukri Radiol 2018): Any incidental renal lesion less than 1 cm or classified as too small to characterize, or any incidental cystic renal lesion characterized as simple-appearing, is likely benign. No follow-up imaging is recommended for these lesions per consensus recommendations based on imaging criteria.
[2022-09-18 18:00] VITALS: BP 124/55
[2022-09-18] MEDS: iohexol 350 mg/mL 100 mL Btl IV (18:07)
[2022-09-18 18:24] LABS: Lactic Acid level (Lactate) 1.7 mmol/L (0.5-2.2)
[2022-09-18 19:10] LABS: Add Urine Microscopic? YES; Bilirubin Urine Neg (Negative); Blood Urine 2+ (Negative); Glucose Urine UA Norm (Normal); Ketones Urine Negative (Negative); Leukocyte Esterase Urine Negative (Negative); Nitrate Urine Negative (Negative); Protein Urine Neg (Negative); Sulfosalicylic Acid Urine Negative (Negative); Urine Appearance Clear (CLEAR); Urine Color Yellow (Yellow); Urobilinogen Urine Neg (Negative); pH Urine 9 (5-7)
[2022-09-18 19:13] LABS: Add Urine Culture? Yes; Bacteria Urine TRACE /hpf; Squamous Epithelial Cell Urine 0-4 /hpf (0-5); WBC Urine 0-4 /hpf (0-5)
[2022-09-18 19:23] LABS: Troponin 5 2HR 9.27 ng/L (0-15)
[2022-09-18 19:29] LABS: Troponin 5 2HR Delta 3.27 ABS# (0-10)
[2022-09-18 20:58] VITALS: BP 145/87; PULSE 90; RESP 16; O2SAT 98
--- NOTE | 2022-09-18 22:38 | ECG_ITS ---
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 Measurements Intervals [place] Rate: 82 P: GA: QRS: -12 QRSD: 86 T: -5 QT: 383 QTc: 450 Interpretive Statements ATRIAL FIBRILLATION ABNORMAL RHYTHM ECG Compared to ECG 09/18/2022 15:50:56 Left-axis deviation no longer present ST (T wave) deviation no longer present Electronically Signed On 09-19-2022 23:09:53 CDT by Jessica Patricia M.D. [id number]
== END 2022-09-18 20:55 | disposition home or self-care (01) ==
PROVIDERS: Emergency Medicine; Emergency Provider Emergency Medicine; PCP Family Medicine
DX: R07.9 Chest pain, unspecified (principal); I48.91 Unspecified atrial fibrillation; R11.11 Vomiting without nausea
CPT/HCPCS: 36415; 71045; 71260; 74177; 80053; 81001; 83605; 83690; 83735; 84484; 85025; 87086; 93005; 96361; 96374; 96375; 96376; 99285; J2405; J3490; J7030; Q9967

== ENCOUNTER → 2022-09-20 10:23 | Outpatient (BNVA) | payer MEDICARE, OTHER, SELFPAY | PROVIDERS: PCP Family Medicine; Visit Provider Internal Medicine Cardiovascular Disease | DX: I48.91 Unspecified atrial fibrillation (principal); R94.39 Abnormal result of other cardiovascular function study; Z79.01 Long term (current) use of anticoagulants | CPT/HCPCS: 99214 ==

== ENCOUNTER → 2023-09-19 13:26 | Outpatient (BNVA) | payer MEDICARE, OTHER, SELFPAY | PROVIDERS: PCP Family Medicine; Visit Provider Internal Medicine Cardiovascular Disease | DX: I48.91 Unspecified atrial fibrillation (principal); R94.39 Abnormal result of other cardiovascular function study; Z79.01 Long term (current) use of anticoagulants | CPT/HCPCS: 99214 ==

== ENCOUNTER 2024-02-24 10:13 | Emergency (ER) | payer MEDICARE, OTHER, SELFPAY ==
[2024-02-24 10:16] VITALS: BP 148/89; RESP 17; O2SAT 99
--- NOTE | 2024-02-24 10:42 | ED_ITS ---
HPI - Wound/Laceration General: Chief Complaint: Wound/Laceration Stated Complaint: right hand pinky finger lac Time Seen by Provider: 02/24/24 10:27 History of Present Illness: Patient presents to the ER with chief complaint of laceration to right pinky finger. Patient was on a ladder and fell off try to catch himself and he caught the corner of the ladder with his hand. Patient has a obvious open?with bleeding. Patient is on Eliquis for A-fib. Patient's tetanus is up-to-date. Review of Systems General: Reports: 10 or more systems reviewed and unremarkable except in HPI and below PFSH ED PFSH: Medical History Anxiety Adult BMI 30.0-30.9 kg/sq m Right testicular pain Right epididymitis Surgical History History of orchiectomy Family History Father , AT 92 Natural Mother , UNSURE OF AGE No problems noted. Social History Smoking and tobacco/nicotine status: never used tobacco/nicotine Alcohol intake: never Substance/Drug Use: never Marital status: Current occupational status: retired Physical Exam Const: COMMON NORMALS: no acute distress, average body habitus, patient oriented x3, no limitations, healthy appearing, alert and well nourished HENMT: COMMON NORMALS: normocephalic, atraumatic, hearing grossly normal bilaterally, external ears normal, Normal external nose present, moist oral mucous membranes and oropharynx normal HEAD & SCALP: normocephalic and atraumatic NOSE: Normal external nose present EXTERNAL EAR: Yes external ears normal Neck/C-Spine: COMMON NORMALS: no JVD Chest: COMMONS NORMALS: normal inspection of the chest and normal palpation of entire chest wall Resp: COMMON NORMALS: normal respiratory effort, No retractions, No use of accessory muscles and clear to auscultation bilaterally AUSCULTATION: clear to auscultation bilaterally Cardio: COMMON NORMALS: no JVD, regular rate, S1 normal heart sound present, S2 normal heart sound present, No gallops present (Cardio) and No clicks present (Cardio); negative for regular rhythm (Irregularly irregular) RATE: regular rate RHYTHM: abnormal rhythm (Irregularly irregular) HEART SOUNDS: S1 normal heart sound present and S2 normal heart sound present GI: COMMON NORMALS: Normal to inspection, nondistended, normoactive bowel sounds present, Soft to palpation, non-tender, No hepatosplenomegaly present and no masses PALPATION: Yes Soft to palpation and Yes No hepatosplenomegaly present Neuro: COMMON NORMALS: patient oriented x3 SENSORIUM/ORIENTATION: Yes alert Procedures Laceration Laceration 1: Site: other (Right proximal pinky finger) Side (If applicable): right (Circumferential degloving) Description: irregular (Circumferential degloving with possible vascular and tendinous injury) Depth: involves muscle layer (Possible muscular, vascular, tendinous injury) Local Anesthetic: lidocaine 1% (10 cc instilled around laceration) Amount of anesthesia used (mL): 1 Pre-repair: wound explored (Small arteriole like bleeder was tied off with 4-0 nylon) Skin layer closed with: other (Left open packed with gauze and Coban as a pressure dressing) Course Vital Signs: Vital signs: Vital Signs Respiratory Rate 16 02/24/24 11:22 Blood Pressure 148/89 02/24/24 10:16 Pulse Oximetry 100 02/24/24 11:22 Oxygen Delivery Me thod Room Air 02/24/24 10:16 MDM - Wound/Laceration Medical Decision Making And was unwrapped noted arterial type squirting vessel. Pressure was applied to the palm and a hemostat was placed on the vessel which was tied off with 4-0 Prolene. This did not stop the bleeding but it greatly reduced it. Dr. Terrazas at [facility] was consulted who to see pictures and x-ray of the hand which we will get an sent to her. Patient was given a total of 100 mcg of fentanyl, 4 mg of Zofran, 10 mL of lidocaine was injected approximately to the wound to allow for pain control, Ancef 1 g was given IV. After looking at the images Dr. Terrazas thinks it may be beyond salvage and/or need microvascular surgery. Dr. Terrazas thinks she does not do what needs to be done to salvage this finger so finger wanted to be salvage is that have to go somewhere else but if they are okay with amputation and then she will accept the patient. This was discussed with patient and family. They are okay with amputation. Dr. Terrazas was notified of this patient will be transferred to [facility] to be evaluated by Dr. Terrazas Differential Diagnosis Likely laceration and avulsion of skin; Unlikely abscess or abrasion Medical Records I reviewed the patient's medical records. Lab Data I reviewed the patient's lab results. Radiology Impressions Hand X-Ray 02/24/24 11:29 IMPRESSION: 1. Soft tissue edema is seen in the lateral aspect of the 5th digit. 2. Severe osteoarthritis. 3. Negative for acute bony abnormalities. All radiology interpretation(s) finalized by discharge Discharge Plan Discharge Patient Disposition: Xfer Short-Term Hosp Clinical Impression: Chronic anticoagulation Degloving injury of finger Qualifiers: Encounter type: initial encounter Qualified Code(s): S61.209A - Unspecified open wound of unspecified finger without damage to nail, initial encounter Condition: Stable Prescriptions: No Action apixaban 5 mg tablet 5 mg PO BID Qty: 180 2RF Rx Instructions: 340b plan metoprolol succinate 25 mg tablet extended release 24 hr 12.5 mg PO DAILY Qty: 45 3RF pravastatin 10 mg tablet 10 mg PO BEDTIME Qty: 90 3RF Rx Instructions: 340b plan fluoxetine 10 mg capsule 10 mg PO DAILY Qty: 90 3RF Rx Instructions: 340b plan Referrals: Greg Aguilar MD [Primary Care Provider] - Coding Level of Care Code ED Taker Off Braker Machine for Morena Lidnsay
[2024-02-24 10:51] VITALS: RESP 17; O2SAT 96
[2024-02-24] MEDS: lidocaine 1% INJ 10 mL (per mL) INJECTION (10:51)
[2024-02-24] MEDS: fentaNYL 50 mcg/mL INJ 2mL IVP ×2 (10:51→10:59)
[2024-02-24] MEDS: ondansetron 2 mg/ML SDV 2 mL 4 MG IVP (10:52)
[2024-02-24] MEDS: ceFAZolin 1,000 MG in sodium chloride 0.9% (plus) 50 ML 100 MG IV (10:52)
[2024-02-24 10:59] VITALS: RESP 16; O2SAT 100
[2024-02-24 11:22] VITALS: RESP 16; O2SAT 100
[2024-02-24] MEDS: fentaNYL 50 mcg/mL INJ 2mL 100 MCG IVP (11:22)
--- NOTE | 2024-02-24 11:29 | XRR_ITS ---
PROCEDURE INFORMATION: Exam: XR Right Hand Exam date and time: 02/24/2024 11:38 AM Age: 73 years old Clinical indication: Injury or trauma; Fall; Laceration; Right; Little finger; Patient HX: RT 5th digit degloving injury TECHNIQUE: Imaging protocol: Radiologic exam of the right hand. Views: 3 or more views. COMPARISON: No relevant prior studies available. FINDINGS: Bones/joints: There is narrowing of multiple interphalangeal articulations seen consistent with severe osteoarthritis. No acute bony abnormalities seen. There is lateral angulation of the proximal interphalangeal articulation of the index finger. Soft tissues: Diffuse soft tissue edema is seen in the lateral aspect of the 5th digit. XR/XR hand RT min 3V* [id number] IMPRESSION: 1. Soft tissue edema is seen in the lateral aspect of the 5th digit. 2. Severe osteoarthritis. 3. Negative for acute bony abnormalities.
== END 2024-02-24 13:14 | disposition short-term general hospital (02) ==
PROVIDERS: Emergency Provider Emergency Medicine; PCP Family Medicine
DX: S61.216A Laceration without foreign body of right little finger without damage to nail, initial encounter (principal); S61.206A Unspecified open wound of right little finger without damage to nail, initial encounter; W11.XXXA Fall on and from ladder, initial encounter
CPT/HCPCS: 73130; 96365; 96375; 96376; 99285; J0690; J2405; J3010

== ENCOUNTER → 2024-09-19 14:22 | Outpatient (BNVA) | payer MEDICARE, OTHER, SELFPAY | PROVIDERS: PCP Family Medicine; Visit Provider Internal Medicine Cardiovascular Disease | DX: I21.9 Acute myocardial infarction, unspecified (principal); I48.91 Unspecified atrial fibrillation; R94.31 Abnormal electrocardiogram [ECG] [EKG]; R07.9 Chest pain, unspecified | CPT/HCPCS: 93005; 99214 ==

== ENCOUNTER 2025-02-10 05:42 | Emergency (ER) | payer MEDICARE, OTHER, SELFPAY ==
[2025-02-10 05:49] VITALS: BP 154/89; PULSE 80; RESP 16; TEMP 36.4; O2SAT 98; BMI 30.9
--- NOTE | 2025-02-10 05:50 | ECG_ITS ---
[facility] Test Date: 2025-02-10 Pat Name: Vladimir Melgar Department: Room: Gender: Male [employer]: : 1950 Requested By: Valeriy Curran Order Number: [id number] Markell MD: SELVIN HOLLEY Measurements Intervals [place] Rate: 74 P: 0 ME: 0 QRS: -10 QRSD: 90 T: 12 QT: 370 QTc: 411 Interpretive Statements ATRIAL FIBRILLATION ABNORMAL RHYTHM ECG Compared to ECG 09/19/2024 14:28:19 Myocardial infarct finding no longer present Electronically Signed On 02-10-2025 18:07:40 CDT by SELVIN HOLLEY [email or web address]
[2025-02-10 06:21] VITALS: BP 153/85; PULSE 74; RESP 15; O2SAT 95
[2025-02-10 06:24] LABS: Basophils # 0.1 10^3/uL (0.0-0.1); Basophils % 1.1 %; Eosinophils # 0.1 10^3/uL (0.0-0.8); Eosinophils % 1.3 %; Hematocrit 42.2 % (37-53); Lymphocytes # 1.9 10^3/uL (0.8-4.8); Lymphocytes % 34.1 %; Mean Corpuscular HGB Conc 33.4 g/dL (30-55); Mean Corpuscular Hemoglobin 29.9 pg (27-33); Mean Corpuscular Volume 89.4 fl (82-101); Mean Platelet Volume 9.7 fL (7.4-10.4); Monocytes # 0.6 10^3/uL (0.2-0.9); Neutrophils # 2.94 10^3/uL (1.8-7.7); Neutrophils % 53.1 %; Nucleated Red Blood Cells % 0 %; Platelet Count 203 10^3/cmm (157-399); Red Blood Count 4.72 10^6/uL (3.85-5.65); Red Cell Distribution Width 12.9 % (12.1-15.1); White Blood Count 5.52 10^3/uL (3.29-11.43)
--- NOTE | 2025-02-10 06:39 | W.ED.ARRPALP ---
HPI - Arrhythmia/Palpitations General: Chief Complaint: Arrhythmia/Palpitations Stated Complaint: BP High\Possible A-Fib Time Seen by Provider: 02/10/25 06:01 History of Present Illness: 74-year-old male presents emergency room concerned about his blood pressure. He has a history of atrial fibrillation he reports his blood pressure is 160/95 this morning. He is in chronic A-fib for which she is on metoprolol he is also on Eliquis. Patient has not had any medication changes lately. He checked a home blood pressure monitor his pressures in 160/90 range she was concerned and thought that needed to be evaluated this morning he denies chest pain or shortness of breath no difficulty speech vision or swallowing. When I came to see the patient his blood pressure is 140/82 he states he feels fine and is actually requesting to go home Related Data Previous Rx's ?Medication ?Instructions ?Recorded apixaban 5 mg tablet 5 mg PO BID #180 tabs 09/19/23 metoprolol succinate 25 mg 12.5 mg (1/2 x 25 mg) PO DAILY #45 10/03/24 tablet,extended release 24 hr tabs pravastatin 10 mg tablet See Rx Instructions .Route 10/25/24 .COMPLEX #90 tabs Allergies Allergy/AdvReac Type Severity Reaction Status Date / Time No Known Allergies Allergy Verified 09/19/24 13:58 Review of Systems Const: Denies: fever(s) or chills Card: Denies: chest pain Resp: Denies: dyspnea GI: Denies: abdominal pain : Denies: dysuria, urinary frequency or urinary urgency Musc: Denies: neck pain or back pain Skin/Breast: Denies: rash [facility] ED PFSH: Medical History Anxiety Adult BMI 30.0-30.9 kg/sq m Right testicular pain Right epididymitis Surgical History History of orchiectomy Family History Father , AT 92 Natural Mother , UNSURE OF AGE No problems noted. Social History Smoking and tobacco/nicotine status: never used tobacco/nicotine Alcohol intake: never Substance/Drug Use: never Marital status: Current occupational status: retired Physical Exam Const: COMMON NORMALS: no acute distress GENERAL APPEARANCE: cooperative and comfortable ORIENTATION/CONSCIOUSNESS: Yes awake, Yes oriented to person, Yes oriented to place and Yes oriented to time HENMT: COMMON NORMALS: normocephalic, atraumatic and hearing grossly normal bilaterally HEAD & SCALP: normocephalic and atraumatic Resp: COMMON NORMALS: normal respiratory effort, No retractions, No use of accessory muscles and clear to auscultation bilaterally AUSCULTATION: clear to auscultation bilaterally Cardio: COMMON NORMALS: regular rate, regular rhythm and No murmurs present (Cardio) RATE: regular rate RHYTHM: regular rhythm GI: COMMON NORMALS: Soft to palpation and No hepatosplenomegaly present AUSCULTATION: Yes normoactive bowel sounds PALPATION: Yes Soft to palpation, No Tenderness to palpation present (GI), No Guarding due to palpation present (GI) and Yes No hepatosplenomegaly present Extremity: COMMON NORMALS: normal to inspection, capillary refill normal, no clubbing, cyanosis or edema, no calf tenderness and no pedal edema Neuro: SENSORIUM/ORIENTATION: Yes oriented to person, Yes oriented to place and Yes oriented to time Skin: COMMON NORMALS: no rashes or lesions noted GENERAL SKIN EXAM: no rashes or lesions noted Course Vital Signs: Vital signs: Vital Signs Temperature 97.6 F 02/10/25 05:49 Pulse Rate 66 02/10/25 06:57 Respiratory Rate 15 02/10/25 06:21 Blood Pressure 142/82 02/10/25 06:57 Pulse Oximetry 99 02/10/25 06:57 Oxygen Delivery Me thod Room Air 02/10/25 06:21 MDM - Arrhythmia/Palpitations Medical Decision Making Laboratory test did not show any clinically significant abnormalities. Will discharge patient home. Continue current medications no changes Medical Records I reviewed the patient's medical records. Lab Data I reviewed the patient's lab results. 02/10/25 06:15 02/10/25 06:15 Laboratory Results WBC 5.52 10^3/uL (3.29-11.43) 02/10/25 06:15 RBC 4.72 10^6/uL (3.85-5.65) 02/10/25 06:15 Hgb 14.10 g/dL (11.27-16.99) 02/10/25 06:15 Hct 42.2 % (37-53) 02/10/25 06:15 MCV 89.4 fl (82-101) 02/10/25 06:15 MCH 29.9 pg (27-33) 02/10/25 06:15 MCHC 33.4 g/dL (30-55) 02/10/25 06:15 RDW 12.9 % (12.1-15.1) 02/10/25 06:15 Plt Count 203 10^3/cmm (157-399) 02/10/25 06:15 MPV 9.7 fL (7.4-10.4) 02/10/25 06:15 Neut % (Auto) 53.1 % 02/10/25 06:15 Lymph % (Auto) 34.1 % 02/10/25 06:15 Moody % (Auto) 10.0 % 02/10/25 06:15 Eos % (Auto) 1.3 % 02/10/25 06:15 Baso % (Auto) 1.1 % 02/10/25 06:15 Neut # (Auto) 2.94 10^3/uL (1.8-7.7) 02/10/25 06:15 Lymph # (Auto) 1.9 10^3/uL (0.8-4.8) 02/10/25 06:15 Moody # (Auto) 0.6 10^3/uL (0.2-0.9) 02/10/25 06:15 Eos # (Auto) 0.1 10^3/uL (0.0-0.8) 02/10/25 06:15 Baso # (Auto) 0.1 10^3/uL (0.0-0.1) 02/10/25 06:15 Nucleated RBC % (auto) 0 % 02/10/25 06:15 Nucleated RBCs # 0.0 /100WBC 02/10/25 06:15 Sodium 139 mmol/L (136-145) 02/10/25 06:15 Potassium 3.8 mmol/L (3.5-5.1) 02/10/25 06:15 Chloride 105 mmol/L (98-107) 02/10/25 06:15 Carbon Dioxide 23 mmol/L (22-29) 02/10/25 06:15 Anion Gap 14.8 (5-19) 02/10/25 06:15 BUN 13 mg/dL (8-23) 02/10/25 06:15 Creatinine 0.9 mg/dL (0.7-1.2) 02/10/25 06:15 GFR Calculation Not Reportable 02/10/25 06:15 Glucose 102 mg/dL (65-115) 02/10/25 06:15 Calculated Osmolality 288 mOsm/kg (285-295) 02/10/25 06:15 Calcium 9.0 mg/dL (8.5-10.5) 02/10/25 06:15 Total Bilirubin 1.0 mg/dL (0.15-1.2) 02/10/25 06:15 AST 12 U/L (0-40) 02/10/25 06:15 ALT 7 U/L (0-41) 02/10/25 06:15 Alkaline Phosphatase 52 U/L (40-130) 02/10/25 06:15 Total Protein 7.4 g/dL (6.6-8.7) 02/10/25 06:15 Albumin 3.9 g/dL (3.5-5.2) 02/10/25 06:15 Globulin 3.5 g/dL (1.3-4.6) 02/10/25 06:15 No radiology studies performed this visit Discharge Plan Discharge Patient Disposition: Home Clinical Impression: Atrial fibrillation and flutter, Hypertension Condition: Stable Prescriptions: No Action apixaban 5 mg tablet 5 mg PO BID Qty: 180 2RF Rx Instructions: 340b plan metoprolol succinate 25 mg tablet extended release 24 hr 12.5 mg PO DAILY Qty: 45 3RF pravastatin 10 mg tablet See Rx Instructions .ROUTE .COMPLEX Qty: 90 3RF Dose Instruction: TAKE 1 TABLET BY MOUTH AT BEDTIME Rx Instructions: TAKE 1 TABLET BY MOUTH AT BEDTIME Discharge Orders: Discharge ED (Routine); Ordered 02/10/25 Ordered By: Conner Cruz Referrals: Greg Aguilar MD [Primary Care Provider] - Patient Instructions: Opioid Safety, Pain Management Activity Restrictions/Additional Instructions: Thank you [facility] choosing [facility] your healthcare needs today. It is very important that you follow up as instructed or that you return to the Emergency Department should you have concerns or if your condition changes or worsens in any way. You are seen in the emergency room with concerns of your blood pressure. At the time you are seen your blood pressure was mildly elevated but not emergently so. Continue your current medications follow-up with your primary care doctor. Print Language: Hebrew Coding Level of Care Code ED Clerical Adjudicator for Morena Lindsay
[2025-02-10 06:41] LABS: Alanine Aminotransferase 7 U/L (0-41); Albumin Level 3.9 g/dL (3.5-5.2); Alkaline Phosphatase 52 U/L (40-130); Anion Gap 14.8 (5-19); Aspartate Amino Transferase 12 U/L (0-40); Blood Urea Nitrogen 13 mg/dL (8-23); Carbon Dioxide 23 mmol/L (22-29); Chloride 105 mmol/L (98-107); Creatinine Clr Calc Pharmacy 68.3892; Globulin 3.5 g/dL (1.3-4.6); Glucose 102 mg/dL (65-115); Osmolality Calculated 288 mOsm/kg (285-295); Potassium 3.8 mmol/L (3.5-5.1); Sodium 139 mmol/L (136-145); Total Protein 7.4 g/dL (6.6-8.7)
[2025-02-10 06:57] VITALS: BP 142/82; PULSE 66; O2SAT 99
== END 2025-02-10 06:58 | disposition home or self-care (01) ==
PROVIDERS: Emergency Provider Family Medicine; PCP Family Medicine
DX: I48.91 Unspecified atrial fibrillation (principal); Z79.01 Long term (current) use of anticoagulants; I48.92 Unspecified atrial flutter; I10 Essential (primary) hypertension
CPT/HCPCS: 36415; 80053; 85025; 93005; 99284

== ENCOUNTER → 2025-09-16 09:25 | Outpatient (BNVA) | payer MEDICARE, OTHER, SELFPAY | PROVIDERS: PCP Family Medicine; Visit Provider Internal Medicine Cardiovascular Disease | DX: I48.20 Chronic atrial fibrillation, unspecified (principal); I48.92 Unspecified atrial flutter; Z79.01 Long term (current) use of anticoagulants; E78.5 Hyperlipidemia, unspecified; I36.1 Nonrheumatic tricuspid (valve) insufficiency; R94.39 Abnormal result of other cardiovascular function study | CPT/HCPCS: 99214 ==